=== PATIENT | female | born 1935 | race Caucasian/White ===

== ENCOUNTER 2017-10-09 11:11 | Observation (INO) | payer MEDICARE ==
--- NOTE | 2017-10-09 11:19 | ED ---
Altered Mental Status HPI - General Stated Complaint: Poss TIA Time Seen by Provider: 10/09/17 11:16 - History of Present Illness Initial Comments: Patient is transferred to us from an outside facility. Apparently several hours ago she had a syncopal episode. When she woke, she had trouble speaking and left arm weakness. Since then her symptoms have resolved on their own. She denies any weakness at this time. She has no chest pain or shortness of breath. She denies any belly or back pain. She has no diaphoresis. She has no headache. She has no lightheadedness or dizziness currently. She has no numbness or tingling in extremities. - Related Data Home Medications Medication Instructions Recorded Confirmed Lansoprazole [Prevacid] 15 mg PO DAILY 11/27/13 10/02/16 Metoprolol Succinate (ER) [Toprol 50 mg PO BID 11/27/13 10/02/16 XL] Aspirin 81 mg PO DAILY 06/16/16 10/02/16 Donepezil [Aricept] 5 mg PO HS 06/16/16 10/02/16 risperiDONE [RisperDAL] 0.5 mg PO BID 06/16/16 10/02/16 Ciprofloxacin HCl [Cipro] 500 mg PO Q12HR 10/02/16 10/02/16 Escitalopram [Lexapro] 20 mg PO DAILY 10/02/16 10/02/16 Loratadine-Pseudoeph 10-240 mg 1 each PO DAILY 10/02/16 10/02/16 [Claritin-D 24 Hr] amLODIPine [Norvasc] 5 mg PO DAILY 10/02/16 10/02/16 predniSONE 5 mg PO DAILY 10/02/16 10/02/16 Allergies Allergy/AdvReac Type Severity Reaction Status Date / Time metronidazole [From Flagyl] Allergy Unknown Unknown Verified 10/02/16 13:30 Metronidazole HCl Allergy Unknown Unknown Verified 10/02/16 13:30 [From Flagyl] sulfadiazine [Sulfadiazine] Allergy Unknown Verified 10/02/16 13:30 Review of Systems ROS Statement: Those systems with pertinent positive or pertinent negative responses have been documented in the HPI. ROS Other: All systems not noted in ROS Statement are negative. Past Medical History Past Medical History: Asthma, COPD, Dementia, Hypertension, Memory Impairment, Osteoarthritis (OA) Additional Past Medical History / Comment(s): BACK PAIN, colitis, TIA 2 years ago History of Any Multi-Drug Resistant Organisms: None Reported Past Surgical History: Hysterectomy Additional Past Surgical History / Comment(s): EYE SURGERY, bilateral knee replacements Past Anesthesia/Blood Transfusion Reactions: Postoperative Nausea & Vomiting ( PONV) Past Psychological History: Depression Additional Psychological History / Comment(s): . With the family home with but the care of her adult children. No experience. Travel history. No animal exposures. No tobacco use. No alcohol use or recreational drug use Smoking Status: Never smoker Past Alcohol Use History: None Reported Past Drug Use History: None Reported - Past Family History Father Additional Family Medical History / Comment(s): cardiac issues Mother Additional Family Medical History / Comment(s): Alzheimers General Exam General appearance: alert, in no apparent distress Head exam: Present: atraumatic, normocephalic, normal inspection Eye exam: Present: normal appearance, PERRL, EOMI. Absent: scleral icterus, conjunctival injection, periorbital swelling ENT exam: Present: normal exam, mucous membranes moist Neck exam: Present: normal inspection. Absent: tenderness, meningismus, lymphadenopathy Respiratory exam: Present: normal lung sounds bilaterally. Absent: respiratory distress, wheezes, rales, rhonchi, stridor Cardiovascular Exam: Present: regular rate, normal rhythm, normal heart sounds. Absent: systolic murmur, diastolic murmur, rubs, gallop, clicks GI/Abdominal exam: Present: soft, normal bowel sounds. Absent: distended, tenderness, guarding, rebound, rigid Extremities exam: Present: normal inspection, full ROM, normal capillary refill. Absent: tenderness, pedal edema, joint swelling, calf tenderness Back exam: Present: normal inspection Neurological exam: Present: alert, oriented X3, CN II-XII intact Psychiatric exam: Present: normal affect, normal mood Skin exam: Present: warm, dry, intact, normal color. Absent: rash Medical Decision Making - Medical Decision Making Patient presents with symptoms consistent with a TIA. She will be admitted to the hospital. Disposition Clinical Impression: Transient cerebral ischemia Disposition: ADMITTED IP TO THIS [facility] Condition: Fair Is patient prescribed a controlled substance at discharge?: No Referrals: Steve Castro MD [Primary Care Provider] - 1-2 days Time of Disposition: 11:25
[2017-10-09] MEDS ORDERED: ONDANSETRON 4 MG/2 ML VIAL IVP PRN (11:26)
[2017-10-09] MEDS ORDERED: NALOXONE 0.4 MG/ML 1 ML VIAL IV PRN (11:26)
--- NOTE | 2017-10-09 14:40 | P.CRDCN ---
History of Present Illness Consult date: 10/09/17 Requesting physician: Zita Mcintyre Consult reason: sycope Chief complaint: Syncope History of present illness: This is an 82-year-old female with history of hypertension, seizures, dementia, GERD, who was brought to [facility] today following a syncopal episode. History was obtained from the and son are at bedside. On to the , his had gone into the bathroom this morning, he noticed that she was taking more time than usual so he went to check on her. The water was continuing to run in the bathroom, and he states that his was staring off in a stare. She was not responding to him. He proceeded to help her walk to an area where she could sit down, on the way, she became extremely limp and ultimately unresponsive. According to the son, by the time he arrived she was unresponsive. The states it did not look like she was breathing, he did not check for a pulse. Shortly thereafter he said she took a gasp of air and woke up. EKG on presentation to [facility] showed normal sinus rhythm with no acute changes. ET of the head performed on arrival did not reveal any acute intracranial process, or illicit her injury of the right coronal noted. Chest x-ray revealed chronic changes, no acute changes. TSH 5.1 free T4 1 0.1, sodium 140, potassium 3.5, chloride 104, CO2 26 , magnesium 1.4, troponin 0.03. Patient was transferred here to [facility] for evaluation. Medications include 0.25 mg, Prevacid 15 mg, aspirin 81 mg, Exelon 3 mg all in the morning, at bedtime Xanax 0.25 mg, Toprol 50 mg, Norvasc 5 mg, Exelon 3 mg, and Seroquel. Blood pressure on arrival here 144/60 with a heart rate in the 70s, 96% on room air. Troponin 0.012. At the time of my examination, patient is pleasantly confused, unable to give a detailed history, son and are both at bedside. States that she is back to her normal self. Past Medical History Past Medical History: Asthma, COPD, CVA/TIA, Dementia, GERD/Reflux, Hypertension , Memory Impairment, Osteoarthritis (OA) Additional Past Medical History / Comment(s): 2012 TIA, migraines in the past, low L sided back pain, ulcerative colitis, past L pretivia wound/injury. History of Any Multi-Drug Resistant Organisms: None Reported Past Surgical History: Bladder Surgery, Hysterectomy, Joint Replacement Additional Past Surgical History / Comment(s): R eye surgery for strabismus, bilateral total knee arthroplasties, R abdominal lipoma removed, bladder suspension, rectocele repair, colonoscopy, D&C, bilateral cataract removals. Past Anesthesia/Blood Transfusion Reactions: Postoperative Nausea & Vomiting ( PONV) Smoking Status: Never smoker - Past Family History Father Additional Family Medical History / Comment(s): cardiac issues Mother Family Medical History: Dementia Additional Family Medical History / Comment(s): Alzheimers Medications and Allergies Home Medications Medication Instructions Recorded Confirmed Type Aspirin 81 mg PO DAILY 06/16/16 10/09/17 History amLODIPine [Norvasc] 5 mg PO HS 10/02/16 10/09/17 History ALPRAZolam [Xanax] 0.25 mg PO BID 10/09/17 10/09/17 History Lansoprazole [Prevacid] 15 mg PO DAILY 10/09/17 10/09/17 History Metoprolol Succinate (ER) [Toprol 50 mg PO HS 10/09/17 10/09/17 History Xl] QUEtiapine [SEROquel] 150 mg PO HS 10/09/17 10/09/17 History Rivastigmine Tartrate [Exelon] 3 mg PO BID 10/09/17 10/09/17 History Allergies Allergy/AdvReac Type Severity Reaction Status Date / Time metronidazole [From Flagyl] Allergy Unknown Unknown Verified 10/09/17 13:10 Metronidazole HCl Allergy Unknown Unknown Verified 10/09/17 13:10 [From Flagyl] sulfadiazine [Sulfadiazine] Allergy Unknown Verified 10/09/17 13:10 Physical Exam Vitals: Vital Signs Temp Pulse Pulse Resp BP BP Pulse Ox 10/09/17 14:16 96.8 F L 69 18 164/72 96 10/09/17 13:07 98.2 F 64 18 144/63 96 10/09/17 11:15 97.1 F L 76 18 144/65 96 Intake and Output 10/08/17 10/09/17 10/09/17 22:59 06:59 14:59 Other: Weight 61.235 kg PHYSICAL EXAMINATION: HEENT: Head is atraumatic, normocephalic. Pupils equal, round. Neck is supple. There is no elevated jugular venous pressure. Bilateral carotid bruits are heard HEART EXAMINATION: Heart S1 and S2 systolic murmur is heard CHEST EXAMINATION: Lungs are clear to auscultation and precussion. No chest wall tenderness is noted on palpation or with deep breathing. ABDOMEN: Soft, nontender. Bowel sounds are heard. No organomegaly noted. EXTREMITIES: 2+ peripheral pulses with no evidence of peripheral edema and no calf tenderness noted. NEUROLOGIC patient is awake, alert and oriented -1 . Results Cardiac Enzymes 10/09/17 Range/Units 12:30 Troponin I <0.012 (0.000-0.034) ng/mL Current Medications Generic Name Dose Route Start Last Admin Trade Name Freq PRN Reason Stop Dose Admin Amlodipine Besylate 5 mg 10/10/17 09:00 Norvasc PO DAILY SHABNAM Aspirin 81 mg 10/10/17 09:00 Aspirin PO DAILY SHABNAM Donepezil HCl 5 mg 10/09/17 21:00 Aricept PO HS SHABNAM Escitalopram Oxalate 20 mg 10/10/17 09:00 Lexapro PO DAILY SHABNAM Famotidine 20 mg 10/09/17 21:00 Pepcid PO BID SHABNAM Metoprolol Succinate 50 mg 10/09/17 21:00 Toprol Xl PO BID SHABNAM Naloxone HCl 0.2 mg 10/09/17 11:26 Narcan IV Q2M PRN Opioid Reversal Ondansetron HCl 4 mg 10/09/17 11:26 Zofran IVP Q8HR PRN Nausea And Vomiting Risperidone 0.5 mg 10/09/17 21:00 Risperdal PO BID SHABNAM Intake and Output 10/08/17 10/09/17 10/09/17 22:59 06:59 14:59 Other: Weight 61.235 kg Patient Weight 10/10/17 06:59 Weight 61.235 kg EKG Interpretations (text) EKG shows a normal sinus rhythm with no acute changes. Assessment and Plan Plan: Assessment and plan #1 syncope, with preempted staring gaze. Rule out seizures or possible TIA. EKG shows normal sinus rhythm with no acute changes. #2 hypertension history #3 dementia #4 history of UTIs #5 history of seizures Plan We'll request an echocardiogram with Doppler study be performed. We will also repeat an EKG here, continue to monitor the patient for any tachycardia or bradycardia arrhythmias. Further recommendations will be based on these findings and patient's clinical course. DNP note has been reviewed, I agree with a documented findings and plan of care. Patient was seen and examined.
--- NOTE | 2017-10-09 17:48 | EEG ---
ELECTROENCEPHALOGRAM REPORT DATE OF SERVICE: 10/09/2017. REASON FOR TESTING: Transient ischemic attack. DESCRIPTION OF THE PROCEDURE: This EEG was performed using a 21 channel digital electroencephalograph, following international 10-20 system. DESCRIPTION OF THE RECORDING: From the beginning of the tracing, and with patient's eyes closed, the background rhythm was mostly consisting of 8 Hz alpha frequency in the posterior occipital leads. No obvious asymmetry is seen. Frequent muscle and movement artifacts are seen. Photic stimulation was performed with no driving response seen. No pathological waves were elicited. Hyperventilation was not performed. The patient remains awake throughout the tracing. No epileptiform discharges were seen. Her EKG lead showed a regular rate and rhythm. INTERPRETATION: This awake EEG can be considered within normal limits. There was no asymmetry seen. No epileptiform discharges were noticed. The absence of epileptiform discharges does not rule out the diagnosis of epilepsy, therefore clinical correlation is recommended. MMODL / IJN: [id number] /
[2017-10-09] MEDS: ALPRAZolam 0.25 MG TAB PO SCH (19:14)
[2017-10-09] MEDS: FAMOTIDINE 20 MG TAB PO SCH (20:57)
[2017-10-09] MEDS: METOPROLOL SUCCINATE (ER) 50 MG TAB.ER.24H PO SCH (20:57)
[2017-10-09] MEDS: risperiDONE 0.5 MG TAB PO SCH (20:58)
[2017-10-09] MEDS ORDERED: DONEPEZIL 10 MG TAB PO SCH (21:00)
[2017-10-09] MEDS ORDERED: DONEPEZIL 5 MG TAB PO SCH (21:00)
[2017-10-09] MEDS ORDERED: METOPROLOL SUCCINATE (ER) 50 MG TAB.ER.24H PO SCH (21:00)
[2017-10-09] MEDS: QUEtiapine 50 MG TAB PO SCH (21:02)
--- NOTE | 2017-10-09 23:09 | US ---
EXAMINATION TYPE: US carotid duplex BILAT DATE OF EXAM: 10/09/2017 COMPARISON: 11/27/2013 CLINICAL HISTORY: TIA. TIA EXAM MEASUREMENTS: RIGHT: Peak Systolic Velocity (PSV) cm/sec ----- Right CCA: 66.7 ----- Right ICA: 72.6 ----- Right ECA: 109.7 ICA/CCA ratio: 1.1 RIGHT: End Diastole cm/sec ----- Right CCA: 14.4 ----- Right ICA: 10.0 ----- Right ECA: 7.9 LEFT: Peak Systolic Velocity (PSV) cm/sec ----- Left CCA: 71.3 ----- Left ICA: 72.6 ----- Left ECA: 105.7 ICA/CCA ratio: 1.0 LEFT: End Diastole cm/sec ----- Left CCA: 15.7 ----- Left ICA: 17.1 ----- Left ECA: 14.4 VERTEBRALS (direction of flow): Right Vertebral: Antegrade Left Vertebral: Antegrade Rhythm: Normal No significant stenosis seen IMPRESSION: There is antegrade flow in the vertebral arteries. The images and measurements suggest l ess than 20% stenosis in both internal carotid arteries. No adverse change compared to old exam. Criteria for Assigning % of Stenosis / Diameter reduction (Estimation based on the indirect measurements of the internal carotid artery velocities (ICA PSV). 1. Normal (no stenosis)=ICA PSV < 125 cm/s: ratio < 2.0: ICA EDV<40 cm/s. 2. Less than 50% stenosis=ICA PSV < 125 cm/s: ratio < 2.0: ICA EDV<40 cm/s. 3. 50 to 69% stenosis=ICA PSV of 125 to 230 cm/s: ration 2.0 ? 4.0: ICA EDV 40-100 cm/s. 4. Greater than 70% stenosis to near occlusion= ICA PSV > 230 cm/s: ratio > 4.0: ICA EDV > 100 cm/s. 5. Near occlusion= ICA PSV velocities may be low or undetectable: variable ratio and ICA EDV. 6. Total occlusion=unable to detect flow.
[2017-10-09] MEDS: RIVASTIGMINE 4.6MG/24HR PATCH TRANSDERM SCH (23:17)
[2017-10-09] MEDS: OXcarbazepine 150 MG TAB PO SCH (23:17)
--- NOTE | 2017-10-09 23:42 | CONS ---
CONSULTATION DATE OF CONSULTATION: 10/09/2017 CHIEF COMPLAINT: Transient ischemic attack. HISTORY OF PRESENT ILLNESS: The patient is a pleasant 82-year-old female, who is being evaluated by the Neurology service per the request of Dr. Castro for a questionable transient ischemic attack. The patient has a history of advanced dementia and lives with her . Her is at bedside at the time of my evaluation, and the history was obtained from him. Her states that the patient went to the restroom and then he noticed that she was in the restroom for a prolonged period of time. When he went to check up on her, she was sitting on the toilet with the lid closed and she was staring at the wall. He tried talking to her, but she was not responding. He took her to the living room chair and she remained unresponsive to verbal stimuli. EMS was called and the patient was transferred to [facility] where a CT scan of the brain was done and it was negative, according to the chart. The patient remained nonverbal until she was transferred to [facility]. According to the chart, the patient was noticed to have some left-sided weakness. Her states that she had a seizure several months ago and had been placed on Keppra, but it was discontinued due to side effects. An EEG was done and I did reviewed study, which showed no epileptiform discharges. Her basic metabolic profile and cardiac enzymes were normal. Her CT scan of the brain that was done at [facility] mentions an old lacunar infarct involving the right mitchell radiata. At the time of my evaluation, the patient is more awake. She appears to be back to her baseline, according to her . She does have history of Alzheimer's dementia, which was diagnosed several years ago and she is on Exelon and Namenda at home. According to the family, she was initially placed on Aricept but she had significant side effects. On this admission, her Exelon tablets have been switched to Aricept. Of note, the patient does take aspirin 81 mg daily at home. PAST MEDICAL HISTORY: Alzheimer's dementia, asthma, chronic obstructive pulmonary disease, hypertension, osteoarthritis, previous seizure, chronic low back pain, history of stroke, hysterectomy, depression, knee surgeries, eye surgery. SOCIAL HISTORY: There is no history of any tobacco, alcohol or drug use. FAMILY HISTORY: Positive for Alzheimer's dementia and heart disease. HOME MEDICATIONS: Reviewed in the chart. ALLERGIES: FLAGYL AND SULFA DRUGS. REVIEW OF SYSTEM: Unable to obtain due to advanced dementia. PHYSICAL EXAM: Vital signs show a temperature of 98.2, pulse 64, respiration 18, blood pressure 144/63. GENERAL APPEARANCE: The patient is a well-developed, elderly female who appears to be in no acute distress. HEENT: Normocephalic, atraumatic. No facial asymmetry is seen. NECK: Supple with no masses felt. CARDIOVASCULAR: Regular rate and rhythm. ABDOMEN: Nontender and nondistended. Extremities showed no edema or clubbing. NEUROLOGICAL EXAM: The patient is awake and oriented to person only. She does follow commands appropriately. No lateralizing weakness is seen. Language testing was normal. Sensory exam was normal to light touch in all 4 extremities. Mild postural tremors are seen. No seizure-like activity is seen. No facial asymmetry is noticed on cranial nerve testing. IMPRESSION: 1. Transient ischemic attack. 2. Questionable seizure. 3. Advanced Alzheimer's dementia. 4. History of ischemic stroke. RECOMMENDATION: The patient's episode that occurred at home is concerning for a possible focal seizure. As mentioned above, the patient has had a previous seizure and was placed on Keppra for a short period of time. Keppra was then discontinued due to side effects. I had a lengthy discussion with her and children. and I will start her on antiepileptic medications. I will start her on a low-dose of Trileptal 150 mg b.i.d. This will likely be increased in the near future to 300 mg b.i.d. Her initial EEG showed no epileptiform discharges. Her episode may also have been a transient ischemic attack as she was noticed to have left upper extremity weakness, according to the chart. This has resolved. I will discontinue aspirin and start her on Plavix 75 mg daily. I will order a carotid Doppler, fasting lipid panel and serum homocystine level. As for her Alzheimer's dementia, the patient has had significant side effects on Aricept. Her Exelon pills have been substituted to Aricept on this admission. I will discontinue Aricept and start her on Exelon patch daily. After her discharge, she may resume her Exelon tablets and the patch will be discontinued. Continue neuro checks. I will continue to follow with you. Further recommendations to follow. Thank you for allowing me to participate in the care of your patient. If you have any questions, please feel free to contact me. MMODL / IJN: [id number] /
[2017-10-10 06:30] LABS: Basophils % (A) 0 %; Eosinophils # (A) 0.2 k/uL (0-0.7); Eosinophils % (A) 4 %; HCT 38.6 % (34.0-46.0); HGB 12.8 gm/dL (11.4-16.0); Lymphocytes # (A) 1.6 k/uL (1.0-4.8); Lymphocytes % (A) 26 %; MCH 29.6 pg (25.0-35.0); MCHC 33.3 g/dL (31.0-37.0); MCV 88.8 fL (80.0-100.0); Mean Platelet Volume 7.4; Monocytes # (A) 0.4 k/uL (0-1.0); Monocytes % (A) 7 %; Neutrophils # (A) 3.6 k/uL (1.3-7.7); Neutrophils % (A) 60 %; Platelet Count 205 k/uL (150-450); RBC 4.35 m/uL (3.80-5.40); WBC 5.9 k/uL (3.8-10.6)
[2017-10-10 06:43] LABS: ALT 17 U/L (9-52); AST 20 U/L (14-36); Albumin 3.6 g/dL (3.5-5.0); Alkaline Phosphatase 69 U/L (38-126); Anion Gap 10 mmol/L; Blood Urea Nitrogen 13 mg/dL (7-17); Calcium 9.1 mg/dL (8.4-10.2); Carbon Dioxide 29 mmol/L (22-30); Chloride 105 mmol/L (98-107); Cholesterol 184 mg/dL (<200); Glucose 103 mg/dL (74-99); HDL Cholesterol 47 mg/dL (40-60); LDL Cholesterol,Calculated 118 mg/dL (0-99); Potassium 3.9 mmol/L (3.5-5.1); Sodium 144 mmol/L (137-145); Total Bilirubin 0.4 mg/dL (0.2-1.3); Total Protein 6.1 g/dL (6.3-8.2); Triglycerides 95 mg/dL (<150)
[2017-10-10] MEDS: ALPRAZolam 0.25 MG TAB PO SCH ×2 (08:01→17:10)
[2017-10-10] MEDS: amLODIPine 5 MG TAB PO SCH (08:01)
[2017-10-10] MEDS: CLOPIDOGREL 75 MG TAB PO SCH (08:01)
[2017-10-10] MEDS: ESCITALOPRAM 20 MG TAB PO SCH (08:02)
[2017-10-10] MEDS: risperiDONE 0.5 MG TAB PO SCH (08:02)
[2017-10-10] MEDS: FAMOTIDINE 20 MG TAB PO SCH ×2 (08:02→21:03)
[2017-10-10] MEDS: OXcarbazepine 150 MG TAB PO SCH ×2 (08:03→21:03)
[2017-10-10] MEDS ORDERED: ASPIRIN 81 MG PO SCH (09:00)
[2017-10-10] MEDS ORDERED: RIVASTIGMINE 9.5MG/24HR PATCH TRANSDERM SCH (13:30)
--- NOTE | 2017-10-10 14:31 | PN ---
PROGRESS NOTE Ms. Redd is an 82-year-old female who presented with possible syncopal episode. She has history of advanced dementia. She is awake, confused. On the monitor she is in sinus mechanism. There is no evidence of tachy or bradyarrhythmia. There is no evidence of significant hypotension. She continues to be at this time on amlodipine 5 mg daily, Plavix 75 mg daily, Lexapro 20 mg daily, metoprolol succinate 50 mg daily, Seroquel. PHYSICAL EXAMINATION: Blood pressure 140/60 with a heart in the 60s. LUNGS: Clear. HEART: Regular rate and rhythm. S1, S2. No S3. No rub. ABDOMEN: Soft, nontender. EXTREMITIES: No edema. LAB DATA: Revealed BUN and creatinine 13 and 0.6. IMPRESSION: 1. Syncope. Workup in progress. 2. Advance dementia. 3. History of hypertension. RECOMMENDATION: I will review the results for echocardiogram. If there is no evidence of significant abnormality, then no further cardiac workup will be needed. MMODL / IJN: [id number] /
[2017-10-10 15:48] LABS: Appearance,Urine Cloudy (Clear); Bilirubin,Urine Negative (Negative); Blood,Urine Negative (Negative); Color,Urine Yellow; Glucose,Urine (UA) Negative (Negative); Ketones,Urine Negative (Negative); Leukocyte Esterase,Urine Negative (Negative); Mucus,Urine Rare /hpf; Nitrite,Urine Negative (Negative); Protein,Urine Negative (Negative); RBC,Urine 1 /hpf (0-5); Squamous Epithelial Cell,Urine 1 /hpf (0-4); Urobilinogen,Urine <2.0 mg/dL (<2.0); WBC,Urine 1 /hpf (0-5)
--- NOTE | 2017-10-10 17:12 | P.HPIM ---
History of Present Illness H&P Date: 10/10/17 Chief Complaint: Mental status changes with unresponsiveness This is an 82-year-old lady patient of Dr. Castro, known history of seizures. She, as mentioned, osteoarthritis and CVA in the past Alzheimer's dementia with behaviors, requiring maintenance psychotropics, has been stable at home environment however she was sent to the emergency room first evaluated at [facility] secondary to prolonged unresponsiveness. Patient lives with the at home, and the patient was ambulating towards the bathroom, and the was wondering what takes her so long, when he came to investigate, patient was sitting the commode, leaving leaning over in the back seat and unresponsive, or decreased unresponsiveness. Patient has been tried to assist her she was not totally limp, and was able to get her out of the bathroom for further assistance. Approximately one hour has passed prior when this was discovered. EMS was subsequently transferred the patient to leave the [facility], however without any neurology service available at [facility], she was subsequent sent to [facility] When seen patient is alert and oriented 2, son provided most of the history, patient's of the historian Review of Systems Constitutional: Reports as per HPI, Reports anorexia, Denies chills, Denies chronic headaches, Denies chronic pain, Denies daytime sleepiness, Denies fatigue, Denies fever, Denies lethargy, Denies malaise, Denies night sweats, Denies poor appetite, Denies sweats, Denies weakness, Denies weight gain, Denies weight loss Ears, nose, mouth and throat: Reports as per HPI, Denies ant. neck pain, Denies bleeding gums, Denies dental pain, Denies dysphagia, Denies epistaxis, Denies headache, Denies hoarseness, Denies mouth pain, Denies nasal congestion, Denies nasal discharge, Denies neck fullness/pressure, Denies neck lump, Denies nose pain, Denies odynophagia, Denies post-nasal drip, Denies sinus pain, Denies sinus pressure, Denies swelling in mouth, Denies swelling in throat, Denies sore throat, Denies vertigo, Denies voice changes Cardiovascular: Reports as per HPI, Denies chest pain, Denies claudication, Denies decreased exercise tolerance, Denies dyspnea on exertion, Denies edema, Denies high blood pressure, Denies irregular heart beat, Denies leg edema, Denies lightheadedness, Denies orthopnea, Denies palpitations, Denies paroxysmal nocturnal dyspnea, Denies phlebitis, Denies rapid heart beat, Denies shortness of breath, Denies syncope Respiratory: Reports as per HPI, Denies congestion, Denies cough, Denies cough with sputum, Denies dyspnea, Denies excessive sputum, Denies hemoptysis, Denies home oxygen, Denies pain, Denies pain on inspiration, Denies pleurisy, Denies respiratory infections, Denies sleep apnea, Denies snoring, Denies wheezing Gastrointestinal: Reports as per HPI, Denies abdominal pain, Denies belching, Denies bloating, Denies BRBPR, Denies change in bowel habits, Denies coffee ground emesis, Denies constipation, Denies diarrhea, Denies dyspepsia, Denies early satiety, Denies excessive gas, Denies heartburn, Denies hematemesis, Denies hematochezia, Denies indigestion, Denies jaundice, Denies lactose intolerance, Denies loss of appetite, Denies melena, Denies nausea, Denies vomiting Genitourinary: Reports as per HPI Menstruation: Reports as per HPI, Reports postmenopausal, Denies amenorrhea, Denies amenorrhea on BC, Denies currently menstrual, Denies cycle < 21 days, Denies cycle > 35 days, Denies cycle variable, Denies menses 1-7 days, Denies menses 8 or > days, Denies menses variable, Denies period heavy, Denies period light, Denies period normal, Denies period spotting, Denies post hysterectomy, Denies premenarcheal Musculoskeletal: Reports as per HPI, Reports limitation of motion, Reports muscle cramps, Reports myalgias, Denies arm numbness/tingling, Denies atrophy, Denies fractures, Denies frequent falls, Denies gait dysfunction, Denies hot joints, Denies leg numbness/tingling, Denies loss of height, Denies low back pain, Denies morning stiffness, Denies muscle weakness, Denies neck pain, Denies neck stiffness, Denies prior amputations, Denies redness of joints, Denies shooting arm pain, Denies shooting leg pain Integumentary: Reports as per HPI Neurological: Reports as per HPI, Reports balance difficulties, Denies aphasia, Denies ataxia, Denies burning pain, Denies change in mentation, Denies change in smell/taste, Denies change in speech, Denies confusion, Denies convulsions, Denies double vision, Denies gait dysfunction, Denies head injury, Denies headaches, Denies hearing difficulties, Denies lack of coordination, Denies loss of vision, Denies memory loss, Denies migraines, Denies motor disturbance, Denies numbness, Denies paralysis, Denies paresthesias, Denies seizures, Denies sensory deficit, Denies spasticity, Denies syncope, Denies tic, Denies tingling , Denies transient paralysis, Denies tremors, Denies vertigo, Denies weakness, Denies visual changes Psychiatric: Reports as per HPI, Denies anhedonia, Denies anxiety, Denies anxiety attacks, Denies change in appetite, Denies change in libido, Denies change in sleep habits, Denies confusion, Denies depression, Denies difficulty concentrating, Denies disorientation, Denies hallucinations, Denies hopelessness , Denies hypersomnia, Denies insomnia, Denies irritability, Denies memory loss, Denies mood swings, Denies paranoia, Denies sadness/tearfulness, Denies sleep disturbances, Denies suicidal ideation Endocrine: Reports as per HPI, Denies cold intolerance, Denies deepening of the voice, Denies excessive sweating, Denies excessive thirst, Denies fatigue, Denies flushing, Denies heat intolerance, Denies high blood sugars, Denies increase in ring/shoe/hat size, Denies low blood sugars, Denies nocturia, Denies palpitations, Denies polydipsia, Denies polyphagia, Denies polyuria, Denies proptosis, Denies recent glucocorticoid use, Denies thyroid mass, Denies weight change Hematologic/Lymphatic: Reports as per HPI, Denies easy bleeding, Denies easy bruising, Denies lymphadenopathy, Denies lymphedema, Denies thrombophilia Allergic/Immunologic: Reports as per HPI, Denies allergic rhinitis, Denies anaphylaxis, Denies angioedema, Denies gluten intolerance, Denies persistent infections, Denies seasonal allergies, Denies urticaria, Denies wheezing Past Medical History Past Medical History: Asthma, COPD, CVA/TIA, Dementia, GERD/Reflux, Hypertension , Memory Impairment, Osteoarthritis (OA) Additional Past Medical History / Comment(s): 2011 TIA, migraines in the past, low L sided back pain, ulcerative colitis, past L pretivia wound/injury. History of Any Multi-Drug Resistant Organisms: None Reported Past Surgical History: Bladder Surgery, Hysterectomy, Joint Replacement Additional Past Surgical History / Comment(s): R eye surgery for strabismus, bilateral total knee arthroplasties, R abdominal lipoma removed, bladder suspension, rectocele repair, colonoscopy, D&C, bilateral cataract removals. Past Anesthesia/Blood Transfusion Reactions: Postoperative Nausea & Vomiting ( PONV) Past Psychological History: No Psychological Hx Reported Smoking Status: Never smoker Additional History: One brother, from colon cancer, has CAD, 4 sisters, one with CAD at age 45, one daughter healthy 2 sons and one with hypertension - Past Family History Father History Unknown: Yes Family Medical History: Neurologic Disorder (Dementia) Additional Family Medical History / Comment(s): cardiac issues Mother History Unknown: Yes Family Medical History: Dementia, Osteoarthritis (OA) Additional Family Medical History / Comment(s): Alzheimers Medications and Allergies Home Medications Medication Instructions Recorded Confirmed Type Aspirin 81 mg PO DAILY 06/16/16 10/09/17 History amLODIPine [Norvasc] 5 mg PO HS 10/02/16 10/09/17 History ALPRAZolam [Xanax] 0.25 mg PO BID 10/09/17 10/09/17 History Lansoprazole [Prevacid] 15 mg PO DAILY 10/09/17 10/09/17 History Metoprolol Succinate (ER) [Toprol 50 mg PO HS 10/09/17 10/09/17 History Xl] QUEtiapine [SEROquel] 150 mg PO HS 10/09/17 10/09/17 History Rivastigmine Tartrate [Exelon] 3 mg PO BID 10/09/17 10/09/17 History Allergies Allergy/AdvReac Type Severity Reaction Status Date / Time metronidazole [From Flagyl] Allergy Unknown Unknown Verified 10/09/17 13:10 Metronidazole HCl Allergy Unknown Unknown Verified 10/09/17 13:10 [From Flagyl] sulfadiazine [Sulfadiazine] Allergy Unknown Verified 10/09/17 13:10 Physical Exam Vitals: Vital Signs Temp Pulse Pulse Resp BP BP Pulse Ox 10/09/17 16:00 96.9 F L 78 16 141/64 95 10/09/17 14:16 96.8 F L 69 18 164/72 96 10/09/17 13:07 98.2 F 64 18 144/63 96 10/09/17 11:15 97.1 F L 76 18 144/65 96 Intake and Output 10/09/17 10/09/17 10/09/17 06:59 14:59 22:59 Intake Total 0 Output Total 400 Balance -400 Intake: Oral 0 Output: Urine 400 Other: # Voids 1 # Bowel Movements 0 Weight 61.235 kg - Constitutional General appearance: cooperative, no acute distress - EENT Eyes: anicteric sclerae, EOMI, normal appearance ENT: NA/AT, normal oropharynx - Neck Neck: normal ROM - Respiratory Respiratory: bilateral: CTA, negative: diminished, dullness, rales, rhonchi, wheezing - Cardiovascular Rhythm: regular Heart sounds: normal: S1, S2 Abnormal Heart Sounds: no systolic murmur, no diastolic murmur, no rub, no S3 Gallop, no S4 Gallop, no click, no other - Gastrointestinal General gastrointestinal: normal bowel sounds, soft - Integumentary Integumentary: normal, normal turgor - Neurologic Neurologic: CNII-XII intact - Musculoskeletal Musculoskeletal: generalized weakness, strength equal bilaterally - Psychiatric Psychiatric: A&O x's 3, appropriate affect Results CBC & Chem 7: 10/10/17 06:14 10/10/17 06:14 Labs: Laboratory Results WBC 5.9 k/uL (3.8-10.6) 10/10/17 06:14 RBC 4.35 m/uL (3.80-5.40) 10/10/17 06:14 Hgb 12.8 gm/dL (11.4-16.0) 10/10/17 06:14 Hct 38.6 % (34.0-46.0) 10/10/17 06:14 MCV 88.8 fL (80.0-100.0) 10/10/17 06:14 MCH 29.6 pg (25.0-35.0) 10/10/17 06:14 MCHC 33.3 g/dL (31.0-37.0) 10/10/17 06:14 RDW 13.0 % (11.5-15.5) 10/10/17 06:14 Plt Count 205 k/uL (150-450) 10/10/17 06:14 Neutrophils % 60 % 10/10/17 06:14 Lymphocytes % 26 % 10/10/17 06:14 Monocytes % 7 % 10/10/17 06:14 Eosinophils % 4 % 10/10/17 06:14 Basophils % 0 % 10/10/17 06:14 Neutrophils # 3.6 k/uL (1.3-7.7) 10/10/17 06:14 Lymphocytes # 1.6 k/uL (1.0-4.8) 10/10/17 06:14 Monocytes # 0.4 k/uL (0-1.0) 10/10/17 06:14 Eosinophils # 0.2 k/uL (0-0.7) 10/10/17 06:14 Basophils # 0.0 k/uL (0-0.2) 10/10/17 06:14 Sodium 144 mmol/L (137-145) 10/10/17 06:14 Potassium 3.9 mmol/L (3.5-5.1) 10/10/17 06:14 Chloride 105 mmol/L (98-107) 10/10/17 06:14 Carbon Dioxide 29 mmol/L (22-30) 10/10/17 06:14 Anion Gap 10 mmol/L 10/10/17 06:14 BUN 13 mg/dL (7-17) 10/10/17 06:14 Creatinine 0.60 mg/dL (0.52-1.04) 10/10/17 06:14 Est GFR (CKD-EPI)AfAm >90 (>60 ml/min/1.73 sqM) 10/10/17 06:14 Est GFR (CKD-EPI)NonAf 85 (>60 ml/min/1.73 sqM) 10/10/17 06:14 Glucose 103 mg/dL (74-99) H 10/10/17 06:14 Calcium 9.1 mg/dL (8.4-10.2) 10/10/17 06:14 Total Bilirubin 0.4 mg/dL (0.2-1.3) 10/10/17 06:14 AST 20 U/L (14-36) 10/10/17 06:14 ALT 17 U/L (9-52) 10/10/17 06:14 Alkaline Phosphatase 69 U/L (38-126) 10/10/17 06:14 Troponin I <0.012 ng/mL (0.000-0.034) 10/09/17 23:59 Total Protein 6.1 g/dL (6.3-8.2) L 10/10/17 06:14 Albumin 3.6 g/dL (3.5-5.0) 10/10/17 06:14 Triglycerides 95 mg/dL (<150) 10/10/17 06:14 Cholesterol 184 mg/dL (<200) 10/10/17 06:14 LDL Cholesterol, Calc 118 mg/dL (0-99) H 10/10/17 06:14 HDL Cholesterol 47 mg/dL (40-60) 10/10/17 06:14 Homocysteine 9.23 umol/L (4.00-14.00) 10/10/17 06:14 TSH 2.970 mIU/L (0.465-4.680) 10/10/17 06:14 Urine Color Yellow 10/10/17 15:35 Urine Appearance Cloudy (Clear) H 10/10/17 15:35 Urine pH 7.0 (5.0-8.0) 10/10/17 15:35 Ur Specific [place] 1.010 (1.001-1.035) 10/10/17 15:35 Urine Protein Negative (Negative) 10/10/17 15:35 Urine Glucose (UA) Negative (Negative) 10/10/17 15:35 Urine Ketones Negative (Negative) 10/10/17 15:35 Urine Blood Negative (Negative) 10/10/17 15:35 Urine Nitrite Negative (Negative) 10/10/17 15:35 Urine Bilirubin Negative (Negative) 10/10/17 15:35 Urine Urobilinogen <2.0 mg/dL (<2.0) 10/10/17 15:35 Ur Leukocyte Esterase Negative (Negative) 10/10/17 15:35 Urine RBC 1 /hpf (0-5) 10/10/17 15:35 Urine WBC 1 /hpf (0-5) 10/10/17 15:35 Ur Squamous Epith Cells 1 /hpf (0-4) 10/10/17 15:35 Urine Mucus Rare /hpf (None) H 10/10/17 15:35 Thrombosis Risk Factor Assmnt - DVT/VTE Prophylaxis DVT/VTE Prophylaxis: Pharmacologic Prophylaxis ordered - Choose All That Apply Any of the Below Risk Factors Present?: Yes Each Factor Represents 1 point: Abnormal pulmonary function (COPD), Obesity ( BMI >25) Other Risk Factors: Yes Each Risk Factor Represents 3 Points: Age 75 years or older Other congenital or acquired thrombophilia - If yes, enter type in comment: No Thrombosis Risk Factor Assessment Total Risk Factor Score: 5 Thrombosis Risk Factor Assessment Level: High Risk Assessment and Plan Plan: 1 Metabolic encephalopathy with prolonged unresponsiveness, TIA against seizure , possible history of seizure however patient is not medicated for this, follows closely by her personal neurologis Patricia Brantley, EEG of the brain, CAT scan failed to reveal any acute changes, she does have cerebral atrophy. Patient had a carotid Dopplers, and lipid panels and homocystine level, EEG of the brain, no rechecks, urinalysis is negative TSH is normal 2.9. Trileptal started by neurology started on Plavix 75 mg daily 2 Advanced dementia, maintained on Seroquel and Risperdal secondary to behaviors , patient has been stable, however she does have pleasant sundowning every day, neurology is following, and they have titrated exelon to exelon patch daily and continue on her Exelon patch post discharge .Family requests long-term care at [facility] secondary to needs, the is also physically ill, we will provide comforting and nonthreatening environment while here, will discontinue SCDs as this can disrupt sleep and can get her agitated. Seroquel 150 mg at bedtime to continue, initiate 12.5 mg every morning, to replace home dose of Risperdal 0.5 mg twice a day., This was carefully reviewed at home again later to clarify medications, confirms no use of Risperdal at home just Seroquel. We would discontinue Seroquel 12.5 mg a.m. and continue 150 at at bedtime 3 COPD without any exacerbation 4 Hypertensive cardiovascular disease, Toprol-XL 50 mg daily, amlodipine 5 mg daily,, when necessary hydralazine 10 every 4 when necessary for 150 5 Anxiety on Xanax 0.25 mg twice a day, add melatonin at 6 mg at bedtime once the hospital 6 dvt prophylaxis Lovenox subcu, discontinue SCDs as it is disruptive and agitated the patient 7 Discharge planning, permanent long-term stay at [facility] social psychologist in progress Observation status during this hospital stay, patient might require additional investigations, urinalysis was
[2017-10-10] MEDS: ENOXAPARIN 30 MG/0.3 ML SYRINGE SQ SCH (18:57)
--- NOTE | 2017-10-10 20:06 | P.PN ---
Subjective Progress Note Date: 10/10/17 Principal diagnosis: TIA Neurology is following an 82-year-old female for possible TIA and seizure. Patient has extensive history of advanced dementia (alzheimers) and lives with her . Patient was in the restroom for a prolonged period time, spouse checked on patient and noted that the patient was staring at the wall. Spouse attempted to interact with the patient but she would not respond. Patient was moved to living room chair and remained unresponsive to verbal stimuli. EMS was called and transferred patient to [facility] where a CT of the brain was negative. Patient remained nonverbal until she was transferred to [facility]. on arrival at the ED and [place], patient was observed to have some left -sided weakness. Spouse states that she had a seizure several months ago and was placed on Keppra but discontinued due to side effects. EEG was conducted and found to be normal. BMP, cardiac enzymes were normal. Patient was found to be more awake when original consult was conducted. Patient appeared to be back to baseline according to . Patient does have history of Alzheimer' s which was diagnosed several years ago and she is on Exelon and Namenda at home. According to family she failed Aricept due to significant side effects. Patient was placed on Trileptal 150 mg twice a day after initial neurological consult with anticipation of increasing 300 twice a day in the office setting after discharge. Imaging noted old lacunar infarct on charting from [facility]. On contact, patient was resting in bed, no acute distress, family at the bedside. Patient was noted to be alert. Objective - Vital Signs Vital signs: Vital Signs Temp 97.6 F 10/10/17 16:00 Pulse 72 10/10/17 16:00 Resp 18 10/10/17 16:00 BP 168/70 10/10/17 16:00 Pulse Ox 92 L 10/10/17 16:00 Intake & Output 10/10/17 10/10/17 10/11/17 06:59 18:59 06:59 Intake Total 0 Output Total 200 300 Balance -200 -300 Weight 60 kg Intake: Oral 0 Output: Urine 200 300 Other: # Voids 1 1 # Bowel Movements 0 0 - Exam General appearance: Alert & oriented x1, no apparent distress. Head: Atraumatic, normocephalic, normal inspection Eyes: Well appearance, PERRLA, EOMI. Absent scleral icterus, conjunctival injection, nystagmus, periorbital swelling. Ear, nose and throat: Normal exam, mucous membranes moist Neck: Normal inspection, absent tenderness, lymphadenopathy. Respiratory: No increased work of breathing Cardiovascular: Regular rate, rhythm GI/abdominal: nontender, nondistended Extremities: full range of motion, normal capillary refill, no tenderness, pedal edema joint swelling, calf tenderness. Neurological: cranial nerves II through XII intact no lateralizing weakness no seizure activity noted on physical exam or reported by nursing her staff since initiation of Trileptal patient is alert to person only, no lateralizing weakness, language was normal. Sensory exam was normal to light touch in all 4 extremities. Mild postural tremors noted. No facial asymmetry and cranial nerve testing. Psychological: Mood and affect appropriate for setting. - Labs CBC & Chem 7: 10/10/17 06:14 10/10/17 06:14 Labs: Abnormal Lab Results - Last 24 Hours (Table) 10/10/17 10/10/17 Range/Units 06:14 15:35 Glucose 103 H (74-99) mg/dL Total Protein 6.1 L (6.3-8.2) g/dL LDL Cholesterol, Calc 118 H (0-99) mg/dL Urine Appearance Cloudy H (Clear) Urine Mucus Rare H (None) /hpf Assessment and Plan (1) Seizure Current Visit: Yes Status: Acute Code(s): R56.9 - UNSPECIFIED CONVULSIONS SNOMED Code(s): 64900071 (2) Transient cerebral ischemia Current Visit: Yes Status: Acute Code(s): G45.9 - TRANSIENT CEREBRAL ISCHEMIC ATTACK, UNSPECIFIED SNOMED Code(s): 071070170 (3) Alzheimer's dementia Current Visit: Yes Status: Acute Code(s): G30.9 - ALZHEIMER'S DISEASE, UNSPECIFIED; F02.80 - DEMENTIA IN OTH DISEASES CLASSD ELSWHR W/O BEHAVRL DISTURB SNOMED Code(s): 35077609 Plan: 1. TIA Continue Plavix 75 mg by mouth daily. Carotid Doppler was negative. Prescribed Lipitor 40 mg by mouth daily at bedtime for elevated LDL Total cholesterol and triglycerides were normal. Serum homocysteine level was normal. Patient has noted prior event with old lacunar infarct noted on imaging. Patient must be on statin therapy based on prior event history and current TIA. 2. Seizure At this time, patient seizure status is still questionable. Patient has not had any activity similar to her recurrence prior to admission related to possible seizure since being started on Trileptal 150 mg twice a day. This will be a slow titration to possibly 300 mg twice a day in the outpatient setting. We'll reevaluate Trileptal use and dosing in the outpatient setting once discharged. EEG was conducted and found to be normal. Continue Trileptal 150 mg twice a day. 3. Alzheimer's patient he does have an extensive history of dementia/Alzheimer's which does appear to be quite advanced. Patient did not tolerate Aricept but is tolerating Exelon and Namenda. Exelon was started during this hospitalization. Continue Namenda and Exelon outpatient and existing dose and frequency. We' ll reevaluate in the outpatient setting on follow-up. Status: Neurology will clear the patient for discharge from a neurological standpoint. I have discussed the plan of care with the physician prior to implementation and he agrees with the plan as implemented.
[2017-10-10] MEDS: MELATONIN 3 MG TABLET PO SCH (21:02)
[2017-10-10] MEDS: QUEtiapine 50 MG TAB PO SCH (21:02)
[2017-10-10] MEDS: METOPROLOL SUCCINATE (ER) 50 MG TAB.ER.24H PO SCH (21:03)
[2017-10-10] MEDS: RIVASTIGMINE 4.6MG/24HR PATCH TRANSDERM SCH (21:03)
[2017-10-10] MEDS: ATORVASTATIN 40 MG TAB PO SCH (21:05)
[2017-10-11 06:46] LABS: Basophils % (A) 0 %; Eosinophils # (A) 0.2 k/uL (0-0.7); Eosinophils % (A) 4 %; HGB 12.1 gm/dL (11.4-16.0); Lymphocytes # (A) 1.2 k/uL (1.0-4.8); Lymphocytes % (A) 25 %; MCH 29.2 pg (25.0-35.0); MCHC 32.7 g/dL (31.0-37.0); MCV 89.1 fL (80.0-100.0); Mean Platelet Volume 7.4; Monocytes # (A) 0.4 k/uL (0-1.0); Monocytes % (A) 9 %; Neutrophils # (A) 2.7 k/uL (1.3-7.7); Neutrophils % (A) 58 %; Platelet Count 190 k/uL (150-450); RBC 4.16 m/uL (3.80-5.40); WBC 4.6 k/uL (3.8-10.6)
[2017-10-11 06:59] LABS: ALT 24 U/L (9-52); AST 19 U/L (14-36); Albumin 3.1 g/dL (3.5-5.0); Alkaline Phosphatase 68 U/L (38-126); Anion Gap 9 mmol/L; Blood Urea Nitrogen 19 mg/dL (7-17); Carbon Dioxide 28 mmol/L (22-30); Chloride 104 mmol/L (98-107); Glucose 96 mg/dL (74-99); Potassium 3.5 mmol/L (3.5-5.1); Sodium 141 mmol/L (137-145); Total Bilirubin 0.4 mg/dL (0.2-1.3); Total Protein 5.5 g/dL (6.3-8.2)
[2017-10-11] MEDS ORDERED: QUEtiapine 25 MG TAB PO SCH (09:00)
[2017-10-11] MEDS: FAMOTIDINE 20 MG TAB PO SCH ×2 (10:37→21:34)
[2017-10-11] MEDS: ESCITALOPRAM 20 MG TAB PO SCH (10:37)
[2017-10-11] MEDS: amLODIPine 5 MG TAB PO SCH (10:37)
[2017-10-11] MEDS: CLOPIDOGREL 75 MG TAB PO SCH (10:37)
[2017-10-11] MEDS: ATORVASTATIN 40 MG TAB PO SCH (10:38)
[2017-10-11] MEDS: OXcarbazepine 150 MG TAB PO SCH ×2 (10:38→21:34)
[2017-10-11] MEDS: ENOXAPARIN 30 MG/0.3 ML SYRINGE SQ SCH (10:38)
[2017-10-11] MEDS: ALPRAZolam 0.25 MG TAB PO SCH ×2 (10:38→15:35)
--- NOTE | 2017-10-11 10:56 | P.DS ---
Providers Date of admission: 10/09/17 11:26 Expected date of discharge: 10/11/17 Attending physician: Zita Mcintyre Consults: 10/09/17 11:27 Consult Physician Routine Consulting Provider: Shira Galloway Consult Reason/Comments: TIA Do you want consulting provider notified?: Yes Consult Physician Routine Consulting Provider: Monica Dunne Consult Reason/Comments: TIA Do you want consulting provider notified?: Yes Primary care physician: Steve Castro [facility] Course: This is an 82-year-old lady patient of Dr. Castro, known history of seizures. 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 Patient lives with the at home, and the patient was ambulating towards the bathroom, and the was wondering what takes her so long, when he came to investigate, patient was sitting the commode, leaving leaning over in the back seat and unresponsive, or decreased unresponsiveness. Patient has been tried to assist her she was not totally limp, and was able to get her out of the bathroom for further assistance. Approximately one hour has passed prior when this was discovered. EMS was subsequently transferred the patient to leave the [facility], however without any neurology service available at [facility], she was subsequent sent to [facility] When seen patient is alert and oriented 2, son provided most of the history, patient's of the historian 10/11: EEG was within normal limits. Carotid duplex showed less than 20% stenosis in both internal carotid arteries. Cardiology is following. Echocardiogram reveals Neurology is following. Patient was placed on Trileptal 150 mg twice daily with plan to increase at 300 mg twice a day in the office setting after discharge for new onset seizure. Patient is to continue Plavix and Lipitor for TIA. Neurology is recommending continuing Namenda and Exelon as an outpatient. She has been cleared for discharge by neurology. Patient had more sundowners last night but back to baseline today. Family members at bedside and updated. Plan for discharge to [facility] once Ins[employer]ancy authorization is obtained. Discharge diagnoses: 1 Metabolic encephalopathy with prolonged unresponsiveness, secondary to TIA or possible seizure--both remain in the differential and are treated. 2 Advanced dementia with behavioral disturbance 3 COPD without any exacerbation 4 Hypertensive cardiovascular disease 5 Generalized anxiety disorder Discharge plan: [facility] Impression and plan of care have been directed as dictated by the signing physician. Grace Toussaint nurse practitioner acting as scribe for signing physician. Patient Condition at Discharge: Good Plan - Discharge Summary Discharge Rx Participant: No New Discharge Prescriptions: New ALPRAZolam [Xanax] 0.25 mg PO 0800,1600 #60 tab Atorvastatin [Lipitor] 40 mg PO DAILY #0 tab Clopidogrel [Plavix] 75 mg PO DAILY #0 tab Escitalopram [Lexapro] 20 mg PO DAILY tab Melatonin 6 mg PO HS #0 tablet OXcarbazepine [Trileptal] 150 mg PO BID tab Continue Aspirin 81 mg PO DAILY amLODIPine [Norvasc] 5 mg PO HS QUEtiapine [SEROquel] 150 mg PO HS Rivastigmine Tartrate [Exelon] 3 mg PO BID Metoprolol Succinate (ER) [Toprol XL] 50 mg PO HS Lansoprazole [Prevacid] 15 mg PO DAILY Discontinued ALPRAZolam [Xanax] 0.25 mg PO BID Discharge Medication List Aspirin 81 mg PO DAILY 06/16/16 [History] amLODIPine [Norvasc] 5 mg PO HS 10/02/16 [History] Lansoprazole [Prevacid] 15 mg PO DAILY 10/09/17 [History] Metoprolol Succinate (ER) [Toprol XL] 50 mg PO HS 10/09/17 [History] QUEtiapine [SEROquel] 150 mg PO HS 10/09/17 [History] Rivastigmine Tartrate [Exelon] 3 mg PO BID 10/09/17 [History] ALPRAZolam [Xanax] 0.25 mg PO 0800,1600 #60 tab 10/11/17 [Rx] Atorvastatin [Lipitor] 40 mg PO DAILY #0 tab 10/11/17 [Rx] Clopidogrel [Plavix] 75 mg PO DAILY #0 tab 10/11/17 [Rx] Escitalopram [Lexapro] 20 mg PO DAILY tab 10/11/17 [Rx] Melatonin 6 mg PO HS #0 tablet 10/11/17 [Rx] OXcarbazepine [Trileptal] 150 mg PO BID tab 10/11/17 [Rx] Follow up Appointment(s)/Referral(s): Steve Castro MD [Primary Care Provider] - 1-2 days Monica Dunne MD [STAFF PHYSICIAN] - 1 Week Discharge Disposition: TRANSFER TO SNF/ECF
--- NOTE | 2017-10-11 11:27 | ECHOF ---
Referral Reason:TIA MEASUREMENTS -------- HEIGHT: 152.4 cm WEIGHT: 59.0 kg BP: 144/65 RVIDd: 2.9 cm (< 3.3) IVSd: 0.9 cm (0.6 - 1.1) LVIDd: 3.1 cm (3.9 - 5.3) LVPWd: 1.0 cm (0.6 - 1.1) IVSs: 1.3 cm LVIDs: 2.3 cm LVPWs: 1.1 cm LA Diam: 2.7 cm (2.7 - 3.8) LAESV Index (A-L): 15.99 ml/m Ao Diam: 3.2 cm (2.0 - 3.7) AV Cusp: 1.6 cm (1.5 - 2.6) MV EXCURSION: 11.562 mm (> 18.000) MV EF SLOPE: 53 mm/s (70 - 150) EPSS: 0.6 cm MV E Jose: 0.99 m/s MV DecT: 179 ms MV A Jose: 1.11 m/s MV E/A Ratio: 0.89 AR PHT: 916 ms RAP: 5.00 mmHg RVSP: 24.76 mmHg FINDINGS -------- Sinus rhythm. This was a technically adequate study. The left ventricular size is normal. Left ventricular wall thickness is normal. Overall left vent ricular systolic function is normal with, an EF between 60 - 65 %. The right ventricle is normal in size. The left atrial size is normal. The right atrium is normal in size. There is mild aortic valve sclerosis. There is mild aortic regurgitation. Mild mitral annular calcification present. No regurgitation noted Right ventricular systolic pressure is normal at < 35 mmHg. The aortic root size is normal. Normal inferior vena cava with normal inspiratory collapse consistent with estimated right atrial pre ssure of 5 mmHg. There is no pericardial effusion. CONCLUSIONS -------- 1. Sinus rhythm. 2. This was a technically adequate study. 3. The left ventricular size is normal. 4. Left ventricular wall thickness is normal. 5. Overall left ventricular systolic function is normal with, an EF between 60 - 65 %. 6. The right ventricle is normal in size. 7. The left atrial size is normal. 8. The right atrium is normal in size. 9. There is mild aortic valve sclerosis. 10. There is mild aortic regurgitation. 11. Mild mitral annular calcification present. 12. No regurgitation noted 13. Right ventricular systolic pressure is normal at < 35 mmHg. 14. The aortic root size is normal. 15. Normal inferior vena cava with normal inspiratory collapse consistent with estimated right atrial pressure of 5 mmHg. 16. There is no pericardial effusion. CONE TENDER: Amanda Cárdenas RDCS
--- NOTE | 2017-10-11 11:53 | PN ---
PROGRESS NOTE Mrs. Redd is a 82-year-old female who presented with possible syncopal episode of unclear etiology. On the monitor, she is stable. There is no evidence of tachy or bradyarrhythmia. She had an echocardiogram that revealed preserved ventricular size and systolic function. She has significant dementia. She continues to be on amlodipine 5 mg daily, Lipitor of 40 mg daily, Plavix 75 mg daily, Lexapro, metoprolol succinate 50 mg daily. PHYSICAL EXAMINATION: Blood pressure 123/60 with a heart in the 70s. LUNGS: Clear regular rhythm S1, S2. No S3. No rub. ABDOMEN: Soft, nontender. EXTREMITIES: No edema. LAB DATA: Revealed BUN and creatinine 19 and 0.7, potassium 3.5. IMPRESSION: 1. Syncopal episode of unclear etiology, possible neurological event. No clear evidence to suggest cardiac abnormalities. 2. Hypertension. 3. Significant dementia. RECOMMENDATION: From the cardiac standpoint, there is no indication for any further cardiac workup. We will see on as needed basis. Please feel free to call us for any questions. MMODL / IJN: [id number] /
--- NOTE | 2017-10-11 15:22 | P.PN ---
Subjective Progress Note Date: 10/11/17 This is an 82-year-old lady patient of Dr. Castro, known history of seizures. 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 Patient lives with the at home, and the patient was ambulating towards the bathroom, and the was wondering what takes her so long, when he came to investigate, patient was sitting the commode, leaving leaning over in the back seat and unresponsive, or decreased unresponsiveness. Patient has been tried to assist her she was not totally limp, and was able to get her out of the bathroom for further assistance. Approximately one hour has passed prior when this was discovered. EMS was subsequently transferred the patient to leave the [facility], however without any neurology service available at [facility], she was subsequent sent to [facility] When seen patient is alert and oriented 2, son provided most of the history, patient's of the historian 10/11: EEG was within normal limits. Carotid duplex showed less than 20% stenosis in both internal carotid arteries. Cardiology is following. Echocardiogram reveals EF of 60-65%, mild aortic valve sclerosis, mild aortic regurgitation, mild mitral calcification. Neurology is following. Patient was placed on Trileptal 150 mg twice daily with plan to increase at 300 mg twice a day in the office setting after discharge for new onset seizure. Patient is to continue Plavix and Lipitor for TIA. Neurology is recommending continuing Namenda and Exelon as an outpatient. She has been cleared for discharge by neurology. Patient had more sundowners last night but back to baseline today. Family members at bedside and updated. Plan for discharge to [facility] once Insurancy authorization is obtained. Insurance denied authorization for patient to be transferred to subacute rehab. Plan is for peer to peer review on Saturday. Objective - Vital Signs Vital signs: Vital Signs Temp 96.6 F L 10/11/17 12:00 Pulse 93 10/11/17 12:00 Resp 18 10/11/17 12:00 BP 120/69 10/11/17 12:00 Pulse Ox 93 L 10/11/17 12:00 Intake & Output 10/10/17 10/11/17 10/11/17 18:59 06:59 18:59 Intake Total 0 100 118 Output Total 300 Balance -300 100 118 Weight 60.5 kg Intake: Oral 0 100 118 Output: Urine 300 Other: Voiding Method Diaper Incontinent # Voids 1 3 # Bowel Movements 0 0 - Exam General appearance: cooperative, no acute distress - EENT Eyes: anicteric sclerae, EOMI, normal appearance ENT: NA/AT, normal oropharynx - Neck Neck: normal ROM - Respiratory Respiratory: bilateral: CTA, negative: diminished, dullness, rales, rhonchi, wheezing - Cardiovascular Rhythm: regular Heart sounds: normal: S1, S2 Abnormal Heart Sounds: no systolic murmur, no diastolic murmur, no rub, no S3 Gallop, no S4 Gallop, no click, no other - Gastrointestinal General gastrointestinal: normal bowel sounds, soft - Integumentary Integumentary: normal, normal turgor - Neurologic Neurologic: CNII-XII intact - Musculoskeletal Musculoskeletal: generalized weakness, strength equal bilaterally - Psychiatric Psychiatric: A&O x's 1, appropriate affect - Labs CBC & Chem 7: 10/11/17 06:08 10/11/17 06:08 Labs: Abnormal Lab Results - Last 24 Hours (Table) 10/10/17 10/11/17 Range/Units 15:35 06:08 BUN 19 H (7-17) mg/dL Total Protein 5.5 L (6.3-8.2) g/dL Albumin 3.1 L (3.5-5.0) g/dL Urine Appearance Cloudy H (Clear) Urine Mucus Rare H (None) /hpf Microbiology - Last 24 Hours (Table) 10/10/17 15:35 Urine Culture - Preliminary Urine,Clean Catch Assessment and Plan Plan: 1 Metabolic encephalopathy with prolonged unresponsiveness, secondary to TIA or possible seizure--both remain in the differential and are treated. Continue Trileptal 150 mg twice daily, Lipitor 40 mg daily, Plavix 75 mg daily. Neurology consult appreciated. 2 Advanced dementia with behavioral disturbance. Continue Xanax 0.25 mg twice daily scheduled, Lexapro 20 mg daily, Seroquel 150 mg at bedtime and Exelon patch every 24 hours. Neurology consult is appreciated. 3 COPD without any exacerbation 4 Hypertensive cardiovascular disease. Continue Norvasc 5 mg daily, Toprol-XL 50 mg at bedtime. 5 Generalized anxiety disorder. Continue Xanax. Discharge plan: [facility] next week Impression and plan of care have been directed as dictated by the signing physician. Grace Toussaint nurse practitioner acting as scribe for signing physician.
[2017-10-11] MEDS: MELATONIN 3 MG TABLET PO SCH (21:34)
[2017-10-11] MEDS: RIVASTIGMINE 4.6MG/24HR PATCH TRANSDERM SCH (21:34)
[2017-10-11] MEDS: METOPROLOL SUCCINATE (ER) 50 MG TAB.ER.24H PO SCH (21:34)
[2017-10-11] MEDS: QUEtiapine 50 MG TAB PO SCH (21:34)
[2017-10-12] MEDS: FAMOTIDINE 20 MG TAB PO SCH ×2 (08:01→20:33)
[2017-10-12] MEDS: ENOXAPARIN 30 MG/0.3 ML SYRINGE SQ SCH (08:01)
[2017-10-12] MEDS: ALPRAZolam 0.25 MG TAB PO SCH ×2 (08:01→15:42)
[2017-10-12] MEDS: ATORVASTATIN 40 MG TAB PO SCH (08:02)
[2017-10-12] MEDS: amLODIPine 5 MG TAB PO SCH (08:02)
[2017-10-12] MEDS: ESCITALOPRAM 20 MG TAB PO SCH (08:02)
[2017-10-12] MEDS: OXcarbazepine 150 MG TAB PO SCH ×2 (08:02→20:33)
[2017-10-12] MEDS: CLOPIDOGREL 75 MG TAB PO SCH (08:02)
--- NOTE | 2017-10-12 12:58 | P.PN ---
Subjective Progress Note Date: 10/12/17 Principal diagnosis: Encephalopathy Patient continued to be at baseline mental status where she is alert and oriented only to self family at the bedside including and 2 sons who reassured me that the patient is back at baseline mental status similar to home but patient has been experiencing worsening in her dementia recently where she is becoming dependent on most of her daily activity requiring prompt to swallow and one to one assistance in feeding. Patient is incontinent at the time. Patient still having episodes of agitation requiring medication to calm patient down Objective - Vital Signs Vital signs: Vital Signs Temp 98.4 F 10/12/17 07:00 Pulse 71 10/12/17 07:00 Resp 18 10/12/17 07:00 BP 134/78 10/12/17 07:00 Pulse Ox 95 10/12/17 07:00 Intake & Output 10/11/17 10/12/17 10/12/17 18:59 06:59 18:59 Intake Total 118 220 Balance 118 220 Intake: Oral 118 220 Other: Voiding Method Diaper Diaper Incontinent Incontinent # Voids 3 2 # Bowel Movements 0 - Exam Gen.: in stated age, no acute distress Heart: Normal S1-S2 Lungs: Clear to auscultation bilaterally Abdomen: Soft, no tenderness, positive bowel sounds in all 4 quadrant no guarding or rebound Skin: No new rash Psych: Alert and oriented 1 only Neuro: No focal deficit - Labs CBC & Chem 7: 10/11/17 06:08 10/11/17 06:08 Labs: Microbiology - Last 24 Hours (Table) 10/10/17 15:35 Urine Culture - Final Urine,Clean Catch Strep agalactiae - (group b) Assessment and Plan Assessment: 1. Altered mental status likely related to worsening dementia. 2. Moderate to severe protein calorie malnutrition with decreased oral intake. 3. Serial debility and deconditioning. 4. COPD. 5. Hypertension. 6. Anemia. I had long discussion with the patient and 2 sons regarding her current disease and management on the long run patient's family agreeable to discharge to a [place] [facility] [place] as patient is becoming dependent in most of her daily activity requiring assistance with one to one and her feeding and daily activities. We will continue encouraging oral intake continue with anxiety medication and reorientation plan discussed with the nursing staff and we will have physical and neck patient will therapy regarding discharge planning to a rehab facility on Saturday
[2017-10-12] MEDS: METOPROLOL SUCCINATE (ER) 50 MG TAB.ER.24H PO SCH (20:33)
[2017-10-12] MEDS: QUEtiapine 50 MG TAB PO SCH (20:33)
[2017-10-12] MEDS: RIVASTIGMINE 4.6MG/24HR PATCH TRANSDERM SCH (20:33)
[2017-10-12] MEDS: MELATONIN 3 MG TABLET PO SCH (20:33)
[2017-10-13] MEDS: FAMOTIDINE 20 MG TAB PO SCH ×2 (08:38→22:41)
[2017-10-13] MEDS: ALPRAZolam 0.25 MG TAB PO SCH ×2 (08:38→16:11)
[2017-10-13] MEDS: ENOXAPARIN 30 MG/0.3 ML SYRINGE SQ SCH (08:38)
[2017-10-13] MEDS: amLODIPine 5 MG TAB PO SCH (08:39)
[2017-10-13] MEDS: ATORVASTATIN 40 MG TAB PO SCH (08:39)
[2017-10-13] MEDS: OXcarbazepine 150 MG TAB PO SCH ×2 (08:39→22:41)
[2017-10-13] MEDS: CLOPIDOGREL 75 MG TAB PO SCH (08:39)
[2017-10-13] MEDS: ESCITALOPRAM 20 MG TAB PO SCH (08:39)
[2017-10-13] MEDS ORDERED: ALPRAZolam 0.25 MG TAB PO PRN (11:24)
--- NOTE | 2017-10-13 12:12 | P.PN ---
Subjective Progress Note Date: 10/13/17 Principal diagnosis: Encephalopathy Patient is still confused but at baseline mental status where she is alert and oriented 1 only. at the bedside requesting Xanax to control her fidgety. Agent is tolerating diet but requires assistance with all her daily activities Objective - Vital Signs Vital signs: Vital Signs Temp 98.0 F 10/13/17 06:00 Pulse 67 10/13/17 06:00 Resp 18 10/13/17 06:00 BP 166/81 10/13/17 06:00 Pulse Ox 92 L 10/13/17 06:00 Intake & Output 10/12/17 10/13/17 10/13/17 18:59 06:59 18:59 Intake Total 100 Balance 100 Intake: Oral 100 Other: Voiding Method Diaper Diaper Diaper Incontinent Incontinent Incontinent # Voids 2 1 # Bowel Movements 0 - Exam Gen.: in stated age, no acute distress Heart: Normal S1-S2 Lungs: Clear to auscultation bilaterally Abdomen: Soft, no tenderness, positive bowel sounds in all 4 quadrant no guarding or rebound Skin: No new rash Psych: Alert and oriented 1 only Neuro: No focal deficit - Labs CBC & Chem 7: 10/11/17 06:08 10/11/17 06:08 Assessment and Plan Assessment: 1. Altered mental status likely related to worsening dementia. 2. Moderate to severe protein calorie malnutrition with decreased oral intake. 3. Serial debility and deconditioning. 4. COPD. 5. Hypertension. 6. Anemia. I had long discussion with the patient and 2 sons regarding her current disease and management on the long run patient's family agreeable to discharge to a detention as patient is becoming dependent in most of her daily activity requiring assistance with one to one and her feeding and daily activities. We will continue encouraging oral intake continue with anxiety medication and reorientation plan discussed with the nursing staff and we will have physical and neck patient will therapy regarding discharge planning to a rehab facility on Saturday I had long discussion with this morning was agreeable to the current treatment plan and discuss that with the nursing staff where I started the patient's on scheduled Xanax and as needed at the same time
[2017-10-13] MEDS: QUEtiapine 50 MG TAB PO SCH (22:41)
[2017-10-13] MEDS: METOPROLOL SUCCINATE (ER) 50 MG TAB.ER.24H PO SCH (22:41)
[2017-10-13] MEDS: MELATONIN 3 MG TABLET PO SCH (22:41)
[2017-10-13] MEDS: RIVASTIGMINE 4.6MG/24HR PATCH TRANSDERM SCH (22:41)
[2017-10-14] MEDS: ALPRAZolam 0.25 MG TAB PO SCH ×2 (09:06→15:36)
[2017-10-14] MEDS: amLODIPine 5 MG TAB PO SCH (09:07)
[2017-10-14] MEDS: FAMOTIDINE 20 MG TAB PO SCH (09:07)
[2017-10-14] MEDS: ENOXAPARIN 30 MG/0.3 ML SYRINGE SQ SCH (09:08)
[2017-10-14] MEDS: ATORVASTATIN 40 MG TAB PO SCH (09:08)
[2017-10-14] MEDS: OXcarbazepine 150 MG TAB PO SCH (09:08)
[2017-10-14] MEDS: ESCITALOPRAM 20 MG TAB PO SCH (09:08)
[2017-10-14] MEDS: CLOPIDOGREL 75 MG TAB PO SCH (09:08)
--- NOTE | 2017-10-14 13:12 | P.PN ---
Subjective This is an 82-year-old lady patient of Dr. Castro, known history of seizures. She, as mentioned, osteoarthritis and CVA in the past Alzheimer's dementia with behaviors, requiring maintenance psychotropics, has been stable at home environment however she was sent to the emergency room first evaluated at [facility] secondary to prolonged unresponsiveness. Patient lives with the at home, and the patient was ambulating towards the bathroom, and the was wondering what takes her so long, when he came to investigate, patient was sitting the commode, leaving leaning over in the back seat and unresponsive, or decreased unresponsiveness. Patient has been tried to assist her she was not totally limp, and was able to get her out of the bathroom for further assistance. Approximately one hour has passed prior when this was discovered. EMS was subsequently transferred the patient to leave the [facility], however without any neurology service available at [facility], she was subsequent sent to [facility] When seen patient is alert and oriented 2, son provided most of the history, patient's of the historian 10/11: EEG was within normal limits. Carotid duplex showed less than 20% stenosis in both internal carotid arteries. Cardiology is following. Echocardiogram reveals EF of 60-65%, mild aortic valve sclerosis, mild aortic regurgitation, mild mitral calcification. Neurology is following. Patient was placed on Trileptal 150 mg twice daily with plan to increase at 300 mg twice a day in the office setting after discharge for new onset seizure. Patient is to continue Plavix and Lipitor for TIA. Neurology is recommending continuing Namenda and Exelon as an outpatient. She has been cleared for discharge by neurology. Patient had more sundowners last night but back to baseline today. Family members at bedside and updated. Plan for discharge to [facility] once Insurancy authorization is obtained. Insurance denied authorization for patient to be transferred to subacute rehab. Plan is for peer to peer review on Saturday. 10/12: Patient continued to be at baseline mental status where she is alert and oriented only to self family at the bedside including and 2 sons who reassured me that the patient is back at baseline mental status similar to home but patient has been experiencing worsening in her dementia recently where she is becoming dependent on most of her daily activity requiring prompt to swallow and one to one assistance in feeding. Patient is incontinent at the time. Patient still having episodes of agitation requiring medication to calm patient down. 10/13: Patient is still confused but at baseline mental status where she is alert and oriented 1 only. at the bedside requesting Xanax to control her fidgety. Agent is tolerating diet but requires assistance with all her daily activities. 10/14: Patient was seen and evaluated today, she is doing well, remains confused , but is at baseline. Vital signs have been stable. Discharge held do to patient needs terminal operations manager care placement and not acute rehab. Objective - Vital Signs Vital signs: Vital Signs Temp 98.6 F 10/14/17 05:48 Pulse 75 10/14/17 05:48 Resp 17 10/14/17 09:10 BP 123/68 10/14/17 05:48 Pulse Ox 93 L 10/14/17 05:48 Intake & Output 10/13/17 10/14/17 10/14/17 18:59 06:59 18:59 Intake Total 220 Output Total 300 Balance -80 Weight 60.5 kg Intake: Oral 220 Output: Urine 300 Other: Voiding Method Diaper Diaper Diaper Incontinent Incontinent Incontinent # Voids 1 2 # Bowel Movements 0 - Exam - Exam General appearance: cooperative, no acute distress - EENT Eyes: anicteric sclerae, EOMI, normal appearance ENT: NA/AT, normal oropharynx - Neck Neck: normal ROM - Respiratory Respiratory: bilateral: CTA, negative: diminished, dullness, rales, rhonchi, wheezing - Cardiovascular Rhythm: regular Heart sounds: normal: S1, S2 Abnormal Heart Sounds: no systolic murmur, no diastolic murmur, no rub, no S3 Gallop, no S4 Gallop, no click, no other - Gastrointestinal General gastrointestinal: normal bowel sounds, soft - Integumentary Integumentary: normal, normal turgor - Neurologic Neurologic: CNII-XII intact - Musculoskeletal Musculoskeletal: generalized weakness, strength equal bilaterally - Psychiatric Psychiatric: A&O x's 1, appropriate affect - Labs CBC & Chem 7: 10/11/17 06:08 10/11/17 06:08 Assessment and Plan Plan: 1 Metabolic encephalopathy with prolonged unresponsiveness, secondary to TIA or possible seizure--both remain in the differential and are treated. Continue Trileptal 150 mg twice daily, Lipitor 40 mg daily, Plavix 75 mg daily. Neurology consult appreciated. 2 Advanced dementia with behavioral disturbance. Continue Xanax 0.25 mg twice daily scheduled, Lexapro 20 mg daily, Seroquel 150 mg at bedtime and Exelon patch every 24 hours. Neurology consult is appreciated. 3 COPD without any exacerbation. 4 Hypertensive cardiovascular disease. Continue Norvasc 5 mg daily, Toprol-XL 50 mg at bedtime. 5 Generalized anxiety disorder. Continue Xanax. Discharge plan: [facility] The above impression and plan of care have been discussed and directed by signing physician, patient was seen and evaluation by signing physician. Sonya Issa nurse practitioner acting as scribe.
[2017-10-14 14:50] VITALS: BP 107/62; PULSE 79; RESP 16; TEMP 98.4
--- NOTE | 2017-10-14 16:30 | P.DS ---
Providers Date of admission: 10/09/17 11:26 Attending physician: Zita Mcintyre Consults: 10/09/17 11:27 Consult Physician Routine Consulting Provider: Shira Galloway Consult Reason/Comments: TIA Do you want consulting provider notified?: Yes Consult Physician Routine Consulting Provider: Monica Dunne Consult Reason/Comments: TIA Do you want consulting provider notified?: Yes Primary care physician: Steve Matthew [facility] Course: This is an 82-year-old lady patient of Dr. aCstro, known history of seizures. 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 Patient lives with the at home, and the patient was ambulating towards the bathroom, and the was wondering what takes her so long, when he came to investigate, patient was sitting the commode, leaving leaning over in the back seat and unresponsive, or decreased unresponsiveness. Patient has been tried to assist her she was not totally limp, and was able to get her out of the bathroom for further assistance. Approximately one hour has passed prior when this was discovered. EMS was subsequently transferred the patient to leave the [facility], however without any neurology service available at [facility], she was subsequent sent to [facility] When seen patient is alert and oriented 2, son provided most of the history, patient's of the historian 10/11: EEG was within normal limits. Carotid duplex showed less than 20% stenosis in both internal carotid arteries. Cardiology is following. Echocardiogram reveals EF of 60-65%, mild aortic valve sclerosis, mild aortic regurgitation, mild mitral calcification. Neurology is following. Patient was placed on Trileptal 150 mg twice daily with plan to increase at 300 mg twice a day in the office setting after discharge for new onset seizure. Patient is to continue Plavix and Lipitor for TIA. Neurology is recommending continuing Namenda and Exelon as an outpatient. She has been cleared for discharge by neurology. Patient had more sundowners last night but back to baseline today. Family members at bedside and updated. Plan for discharge to [facility] once Ins[employer]ancy authorization is obtained. Insurance denied authorization for patient to be transferred to subacute rehab. Plan is for peer to peer review on Saturday. 10/12: Patient continued to be at baseline mental status where she is alert and oriented only to self family at the bedside including and 2 sons who reassured me that the patient is back at baseline mental status similar to home but patient has been experiencing worsening in her dementia recently where she is becoming dependent on most of her daily activity requiring prompt to swallow and one to one assistance in feeding. Patient is incontinent at the time. Patient still having episodes of agitation requiring medication to calm patient down. 10/13: Patient is still confused but at baseline mental status where she is alert and oriented 1 only. at the bedside requesting Xanax to control her fidgety. Agent is tolerating diet but requires assistance with all her daily activities. 10/14: Patient was seen and evaluated today, she is doing well, remains confused , but is at baseline. Vital signs have been stable. Discharge held do to patient needs penitentiary care placement and not acute rehab. Patient will be sent to intermediate facility at [facility]. Discharge diagnoses: 1 Metabolic encephalopathy with prolonged unresponsiveness, secondary to TIA or possible seizure--both remain in the differential and are treated. 2 Advanced dementia with behavioral disturbance 3 COPD without any exacerbation 4 Hypertensive cardiovascular disease 5 Generalized anxiety disorder Discharge plan: [facility] Patient Condition at Discharge: Good Plan - Discharge Summary Discharge Rx Participant: No New Discharge Prescriptions: New ALPRAZolam [Xanax] 0.25 mg PO 0800,1600 #60 tab Atorvastatin [Lipitor] 40 mg PO DAILY #0 tab Clopidogrel [Plavix] 75 mg PO DAILY #0 tab Escitalopram [Lexapro] 20 mg PO DAILY tab Melatonin 6 mg PO HS #0 tablet OXcarbazepine [Trileptal] 150 mg PO BID tab Continue Aspirin 81 mg PO DAILY amLODIPine [Norvasc] 5 mg PO HS QUEtiapine [SEROquel] 150 mg PO HS Rivastigmine Tartrate [Exelon] 3 mg PO BID Metoprolol Succinate (ER) [Toprol XL] 50 mg PO HS Lansoprazole [Prevacid] 15 mg PO DAILY Discontinued ALPRAZolam [Xanax] 0.25 mg PO BID Discharge Medication List Aspirin 81 mg PO DAILY 06/16/16 [History] amLODIPine [Norvasc] 5 mg PO HS 10/02/16 [History] Lansoprazole [Prevacid] 15 mg PO DAILY 10/09/17 [History] Metoprolol Succinate (ER) [Toprol XL] 50 mg PO HS 10/09/17 [History] QUEtiapine [SEROquel] 150 mg PO HS 10/09/17 [History] Rivastigmine Tartrate [Exelon] 3 mg PO BID 10/09/17 [History] ALPRAZolam [Xanax] 0.25 mg PO 0800,1600 #60 tab 10/11/17 [Rx] Atorvastatin [Lipitor] 40 mg PO DAILY #0 tab 10/11/17 [Rx] Clopidogrel [Plavix] 75 mg PO DAILY #0 tab 10/11/17 [Rx] Escitalopram [Lexapro] 20 mg PO DAILY tab 10/11/17 [Rx] Melatonin 6 mg PO HS #0 tablet 10/11/17 [Rx] OXcarbazepine [Trileptal] 150 mg PO BID tab 10/11/17 [Rx] Follow up Appointment(s)/Referral(s): Steve Castro MD [Primary Care Provider] - 1-2 days Monica Dunne MD [STAFF PHYSICIAN] - 1 Week [facility] Visiting Nurse, [NON-STAFF] - Discharge Disposition: TRANSFER TO SNF/ECF
[2017-10-15] MEDS ORDERED: FAMOTIDINE 20 MG TAB PO SCH (09:00)
== END 2017-10-14 18:00 ==
LOC: EC 11:11 → EEVIPCON 11:26 → 6SEL 11:26 → 4MS4W 10-11 16:33
PROVIDERS: ADMIT Family Medicine; ATTEND Family Medicine
DX: G93.41 Metabolic encephalopathy (principal); G45.9 Transient cerebral ischemic attack, unspecified; R56.9 Unspecified convulsions; G30.9 Alzheimer's disease, unspecified; F02.81 Dementia in other diseases classified elsewhere, unspecified severity, with behavioral disturbance; F05 Delirium due to known physiological condition; J44.9 Chronic obstructive pulmonary disease, unspecified; I11.9 Hypertensive heart disease without heart failure; F41.1 Generalized anxiety disorder; M19.90 Unspecified osteoarthritis, unspecified site; R32 Unspecified urinary incontinence; K21.9 Gastro-esophageal reflux disease without esophagitis; E66.9 Obesity, unspecified; Z68.26 Body mass index [BMI] 26.0-26.9, adult; Z86.73 Personal history of transient ischemic attack (TIA), and cerebral infarction without residual deficits; M54.5 Low back pain; G89.29 Other chronic pain; D64.9 Anemia, unspecified; E43 Unspecified severe protein-calorie malnutrition; E78.00 Pure hypercholesterolemia, unspecified; F32.9 Major depressive disorder, single episode, unspecified; Z82.49 Family history of ischemic heart disease and other diseases of the circulatory system; Z80.0 Family history of malignant neoplasm of digestive organs; Z79.82 Long term (current) use of aspirin; Z79.899 Other long term (current) drug therapy; Z88.2 Allergy status to sulfonamides; Z88.1 Allergy status to other antibiotic agents; Z87.440 Personal history of urinary (tract) infections; Z79.52 Long term (current) use of systemic steroids
CPT/HCPCS: 99285; 96372 ×5; 95816; 93306; 97530 ×2; 97162; 97535; 97166; 80061; 80053 ×2; 84443; 84484; 85025 ×2; 81001; 83090; 87086; 93880; G0378 ×6; J1650 ×5

== ENCOUNTER 2017-10-16 19:42 | Emergency (ER) | payer MEDICARE ==
[2017-10-16 20:22] VITALS: RESP 18
[2017-10-16] MEDS ORDERED: DIPH,PERTUS(ACELL)TETVAC-LF 0.5 ML VIAL IM ONE (20:39)
--- NOTE | 2017-10-16 21:23 | ED ---
Fall HPI - General Chief Complaint: Fall Stated Complaint: FALL Time Seen by Provider: 10/16/17 20:19 Source: EMS Mode of arrival: EMS - History of Present Illness Initial Comments: 82-year-old female patient presents to the emergency department today for evaluation after experiencing a fall out of her wheelchair. Patient is a past medical history significant for Alzheimer's dementia and is therefore a poor historian. Staff at the nursing facility reported to EMS that she fell from her wheelchair. They do report head injury with laceration to her posterior scalp. They are unsure if she lost consciousness, staff reported that she was alone for approximately one minute and was alert when they came back into the room. She does take Plavix. Patient denies any headache, neck pain, back pain, dizziness, blurred vision, or double vision. She denies any injuries. Patient denies any chest pain, shortness of breath, abdominal pain, nausea, vomiting, or difficulties with bowel movements or urination. - Related Data Home Medications Medication Instructions Recorded Confirmed Aspirin 81 mg PO DAILY 06/16/16 10/16/17 Lansoprazole [Prevacid] 15 mg PO DAILY 10/09/17 10/16/17 Metoprolol Succinate (ER) [Toprol 50 mg PO HS 10/09/17 10/16/17 XL] QUEtiapine [SEROquel] 150 mg PO HS 10/09/17 10/16/17 Rivastigmine Tartrate [Exelon] 3 mg PO BID 10/09/17 10/16/17 ALPRAZolam [Xanax] 0.25 mg PO DAILY@0800,1700 10/16/17 10/16/17 Bisacodyl [Dulcolax] 10 mg RECTAL DAILY PRN 10/16/17 10/16/17 Magnesium Hydroxide [Milk of 2,400 mg PO DAILY PRN 10/16/17 10/16/17 Magnesia] Na Phos,M-B/Na Phos,Di-Ba [Fleet 1 dose RECTAL DAILY PRN 10/16/17 10/16/17 Adult] amLODIPine [Norvasc] 10 mg PO DAILY 10/16/17 10/16/17 Previous Rx's Medication Instructions Recorded Atorvastatin [Lipitor] 40 mg PO DAILY #0 tab 10/11/17 Clopidogrel [Plavix] 75 mg PO DAILY #0 tab 10/11/17 Escitalopram [Lexapro] 20 mg PO DAILY tab 10/11/17 Melatonin 6 mg PO HS #0 tablet 10/11/17 OXcarbazepine [Trileptal] 150 mg PO BID tab 10/11/17 Allergies Allergy/AdvReac Type Severity Reaction Status Date / Time metronidazole [From Flagyl] Allergy Unknown Unknown Verified 10/16/17 20:27 Metronidazole HCl Allergy Unknown Unknown Verified 10/16/17 20:27 [From Flagyl] sulfadiazine [Sulfadiazine] Allergy Unknown Verified 10/16/17 20:27 Review of Systems ROS Statement: Those systems with pertinent positive or pertinent negative responses have been documented in the HPI. ROS Other: All systems not noted in ROS Statement are negative. Past Medical History Past Medical History: Asthma, COPD, CVA/TIA, Dementia, GERD/Reflux, Hypertension , Memory Impairment, Osteoarthritis (OA) Additional Past Medical History / Comment(s): 2011 TIA, migraines in the past, low L sided back pain, ulcerative colitis, past L pretivia wound/injury. History of Any Multi-Drug Resistant Organisms: None Reported Past Surgical History: Bladder Surgery, Hysterectomy, Joint Replacement Additional Past Surgical History / Comment(s): R eye surgery for strabismus, bilateral total knee arthroplasties, R abdominal lipoma removed, bladder suspension, rectocele repair, colonoscopy, D&C, bilateral cataract removals. Past Anesthesia/Blood Transfusion Reactions: Postoperative Nausea & Vomiting ( PONV) Past Psychological History: No Psychological Hx Reported Smoking Status: Never smoker Past Alcohol Use History: Unable to Obtain Past Drug Use History: Unable to Obtain - Past Family History Father History Unknown: Yes Family Medical History: Neurologic Disorder (Dementia) Additional Family Medical History / Comment(s): cardiac issues Mother History Unknown: Yes Family Medical History: Dementia, Osteoarthritis (OA) Additional Family Medical History / Comment(s): Alzheimers General Exam Limitations: altered mental status General appearance: alert, in no apparent distress, other (This is a well- developed, well-nourished elderly female patient in no acute distress. Vital signs upon presentation are temperature 98.4F, pulse 63, respirations 18, blood pressure 142/63, pulse ox 93% on room air.) Head exam: Present: other (0.5cm laceration to the occipital scalp. Mild surrounding soft tissue swelling. No bony step off or deformity noted with palpation of the cranium. ) Eye exam: Present: normal appearance, PERRL, EOMI. Absent: scleral icterus, conjunctival injection, periorbital swelling ENT exam: Present: normal exam, normal oropharynx, mucous membranes moist Neck exam: Present: normal inspection. Absent: tenderness, meningismus, full ROM (C-collar in place), lymphadenopathy Respiratory exam: Present: normal lung sounds bilaterally. Absent: respiratory distress, wheezes, rales, rhonchi, stridor Cardiovascular Exam: Present: regular rate, normal rhythm, normal heart sounds. Absent: systolic murmur, diastolic murmur, rubs, gallop, clicks GI/Abdominal exam: Present: soft, normal bowel sounds. Absent: distended, tenderness, guarding, rebound, rigid Extremities exam: Present: normal inspection, full ROM, tenderness (Right hip tenderness), normal capillary refill, other (Skin to the lower extremities is pink, warm, and dry. Cap refills less than 3 seconds. Pedal posttibial pulses are 2+ and equal bilaterally.). Absent: pedal edema, joint swelling, calf tenderness Neurological exam: Present: alert, oriented X3, CN II-XII intact Psychiatric exam: Present: normal affect, normal mood Skin exam: Present: warm, dry, intact, normal color. Absent: rash Course Vital Signs 10/16/17 10/16/17 19:44 22:15 Temperature 98.4 F 97 F L Pulse Rate 63 73 Respiratory 18 18 Rate Blood Pressure 142/64 139/64 O2 Sat by Pulse 93 L 95 Oximetry Medical Decision Making - Medical Decision Making 82-year-old female patient presented to the emergency department today for evaluation after experiencing a fall. Physical examination did reveal a small 0.5 cm laceration to the posterior scalp. Patient did have a c-collar in place upon presentation however had no posterior cervical tenderness. Patient did exhibit some right hip tenderness. Neurovascular status to the right lower, he was intact. X-ray of the right hip and pelvis was negative for any acute fracture. CT of the brain and C-spine were performed and showed no acute abnormalities. C-collar was removed patient had full range of motion without any pain or limitation. Did discuss findings and results with the patient she' ll be discharged back to assisted facility. Return parameters discussed in detail. She verbalizes understanding. - Radiology Data Radiology results: report reviewed, image reviewed Single AP view of the pelvis and 2 views of the right hip are obtained. Pelvic ring appears intact. Proximal right femur and hip joints appear intact. There is no evidence for fracture. Sacroiliac joints are intact. Hip joint spaces are fairly normal. Conclusion by Dr. Rojas shows no acute abnormality of the pelvis and right hip. Disposition Clinical Impression: Head injury, Laceration of occipital scalp Disposition: HOME SELF-CARE Condition: Good Instructions: Laceration (ED), Fall Prevention for Older Adults (ED), Head Injury (ED) Additional Instructions: Keep wound clean and dry. Monitor for signs or symptoms of worsening head injury. Follow-up with the primary care physician for recheck in 1-2 days. Return here immediately for any new, worsening, or concerning symptoms. Is patient prescribed a controlled substance at d/c from ED?: No Referrals: Steve Castro MD [Primary Care Provider] - 1-2 days Time of Disposition: 21:58
--- NOTE | 2017-10-16 21:26 | CT ---
EXAMINATION TYPE: CT brain [facility] [place] DATE OF EXAM: 10/16/2017 COMPARISON: Head CT scan 06/16/2016 HISTORY: laceration to posterior head after fall injury. CT DLP: 1308.2 mGycm Automated exposure control for dose reduction was used. TECHNIQUE: CT scan of the head and cervical spine are performed without contrast. FINDINGS: There is cerebral cortical atrophy. There is mild hypodensity in the periventricular whit e matter. There is no mass effect nor midline shift. There is no sign of intracranial hemorrhage. The calvarium is intact. There is incomplete pneumatization of the mastoid sinuses. There is a 4 mm anterior subluxation of C4 in relation to C5. There is hypertrophic cervical facet ar thropathy. I see no fracture. There is degenerative disc space narrowing at C5-6 C6-7 with spurring o f the endplates. Skull base is intact. There is no evidence of a cervical spine fracture. IMPRESSION: Cerebral atrophy and mild chronic small vessel ischemia. No acute abnormality. No change. Spondylotic changes in the cervical spine. Degenerative first-degree C4-5 spondylolisthesis. No fract ure.
--- NOTE | 2017-10-16 21:28 | XR ---
EXAMINATION TYPE: XR Hip RT and AP Pelvis DATE OF EXAM: 10/16/2017 COMPARISON: NONE HISTORY: Pain TECHNIQUE: A single AP view of the pelvis is obtained. Two views of the right hip are obtained. FINDINGS: The pelvic ring appears intact. Proximal right femur and hip joint appear intact. There is no evidence of a fracture. Sacroiliac joints are intact. Hip joint spaces fairly normal. CONCLUSION: No acute abnormality of the pelvis and right hip.
[2017-10-16] MEDS ORDERED: ACETAMINOPHEN TAB 325 MG TAB PO STA (21:58)
[2017-10-16 22:15] VITALS: BP 139/64; PULSE 73; TEMP 97
== END 2017-10-16 23:30 | disposition home or self-care (01) ==
LOC: EC 19:42
DX: S01.01XA Laceration without foreign body of scalp, initial encounter (principal); K21.9 Gastro-esophageal reflux disease without esophagitis; I10 Essential (primary) hypertension; G30.9 Alzheimer's disease, unspecified; F02.80 Dementia in other diseases classified elsewhere, unspecified severity, without behavioral disturbance, psychotic disturbance, mood disturbance, and anxiety; Z96.653 Presence of artificial knee joint, bilateral; Z86.73 Personal history of transient ischemic attack (TIA), and cerebral infarction without residual deficits; Z79.82 Long term (current) use of aspirin; Z79.899 Other long term (current) drug therapy; Z88.1 Allergy status to other antibiotic agents; Z23 Encounter for immunization; W05.0XXA Fall from non-moving wheelchair, initial encounter
CPT/HCPCS: 70450; 72125; 73502; 90471; 90715; 99284

== ENCOUNTER 2017-11-18 11:07 | Emergency (ER) | payer MEDICARE ==
[2017-11-18] MEDS ORDERED: TOPICAL SKIN ADHESIVE 1 EACH AMP TOPICAL STA (11:29)
[2017-11-18 11:31] VITALS: BP 149/67; PULSE 78; RESP 18; TEMP 98.3
--- NOTE | 2017-11-18 11:32 | ED ---
General Adult HPI - General Stated complaint: fall Time Seen by Provider: 11/18/17 11:11 Source: patient, EMS, RN notes reviewed Mode of arrival: EMS Limitations: altered mental status - History of Present Illness Initial comments: Patient is a pleasant 82-year-old female presenting to the emergency department following a fall. Incident occurred just prior to arrival. It is reported the patient did not lose consciousness and there is no change in baseline mental status. Patient has no complaints at this time. Patient denies any significant pain. No chest pain or dyspnea. - Related Data Home Medications Medication Instructions Recorded Confirmed Aspirin 81 mg PO DAILY 06/16/16 10/16/17 Lansoprazole [Prevacid] 15 mg PO DAILY 10/09/17 10/16/17 Metoprolol Succinate (ER) [Toprol 50 mg PO HS 10/09/17 10/16/17 XL] QUEtiapine [SEROquel] 150 mg PO HS 10/09/17 10/16/17 Rivastigmine Tartrate [Exelon] 3 mg PO BID 10/09/17 10/16/17 ALPRAZolam [Xanax] 0.25 mg PO DAILY@0800,1700 10/16/17 10/16/17 Bisacodyl [Dulcolax] 10 mg RECTAL DAILY PRN 10/16/17 10/16/17 Magnesium Hydroxide [Milk of 2,400 mg PO DAILY PRN 10/16/17 10/16/17 Magnesia] Na Phos,M-B/Na Phos,Di-Ba [Fleet 1 dose RECTAL DAILY PRN 10/16/17 10/16/17 Adult] amLODIPine [Norvasc] 10 mg PO DAILY 10/16/17 10/16/17 Previous Rx's Medication Instructions Recorded Atorvastatin [Lipitor] 40 mg PO DAILY #0 tab 10/11/17 Clopidogrel [Plavix] 75 mg PO DAILY #0 tab 10/11/17 Escitalopram [Lexapro] 20 mg PO DAILY tab 10/11/17 Melatonin 6 mg PO HS #0 tablet 10/11/17 OXcarbazepine [Trileptal] 150 mg PO BID tab 10/11/17 Amoxicillin 500 mg PO Q8H #30 capsule 11/18/17 Allergies Allergy/AdvReac Type Severity Reaction Status Date / Time metronidazole [From Flagyl] Allergy Unknown Unknown Verified 11/18/17 11:30 Metronidazole HCl Allergy Unknown Unknown Verified 11/18/17 11:30 [From Flagyl] sulfadiazine [Sulfadiazine] Allergy Unknown Verified 11/18/17 11:30 Review of Systems ROS Statement: Those systems with pertinent positive or pertinent negative responses have been documented in the HPI. ROS Other: All systems not noted in ROS Statement are negative. Constitutional: Denies: fever Eyes: Denies: eye pain ENT: Denies: ear pain Respiratory: Denies: cough Cardiovascular: Denies: chest pain Endocrine: Denies: fatigue Gastrointestinal: Denies: abdominal pain Genitourinary: Denies: dysuria Musculoskeletal: Denies: back pain Skin: Denies: rash Neurological: Denies: headache Past Medical History Past Medical History: Asthma, COPD, CVA/TIA, Dementia, GERD/Reflux, Hypertension , Memory Impairment, Osteoarthritis (OA) Additional Past Medical History / Comment(s): 2011 TIA, migraines in the past, low L sided back pain, ulcerative colitis, past L pretivia wound/injury. History of Any Multi-Drug Resistant Organisms: None Reported Past Surgical History: Bladder Surgery, Hysterectomy, Joint Replacement Additional Past Surgical History / Comment(s): R eye surgery for strabismus, bilateral total knee arthroplasties, R abdominal lipoma removed, bladder suspension, rectocele repair, colonoscopy, D&C, bilateral cataract removals. Past Anesthesia/Blood Transfusion Reactions: Postoperative Nausea & Vomiting ( PONV) Past Alcohol Use History: None Reported Past Drug Use History: None Reported - Past Family History Father History Unknown: Yes Family Medical History: Neurologic Disorder (Dementia) Additional Family Medical History / Comment(s): cardiac issues Mother History Unknown: Yes Family Medical History: Dementia, Osteoarthritis (OA) Additional Family Medical History / Comment(s): Alzheimers General Exam Limitations: no limitations General appearance: alert, in no apparent distress Head exam: Present: other (Left eyebrow laceration) Eye exam: Present: normal appearance, PERRL, EOMI ENT exam: Present: normal oropharynx Neck exam: Present: normal inspection. Absent: tenderness Respiratory exam: Present: normal lung sounds bilaterally Cardiovascular Exam: Present: regular rate, normal rhythm GI/Abdominal exam: Present: soft. Absent: tenderness Extremities exam: Present: full ROM, other (Skin tear left hand without bony tenderness). Absent: tenderness Neurological exam: Present: alert, CN II-XII intact. Absent: motor sensory deficit Expanded Patient oriented to: Present: person, place. Absent: time Motor strength exam: RUE: 5, LUE: 5, RLE: 5, LLE: 5 Eye Response: (4) open spontaneously Motor Response: (6) obeys commands Verbal Response: (4) confused conversation Psychiatric exam: Present: normal affect, normal mood Skin exam: Present: abrasion (Left hand), other (Left eyebrow laceration) Course Vital Signs 11/18/17 11:22 Temperature 98.3 F Pulse Rate 78 Respiratory 18 Rate Blood Pressure 149/67 O2 Sat by Pulse 95 Oximetry Procedures - Laceration Laceration #1 Consent Obtained: verbal consent Time Out Performed: Yes Indication: laceration Site: face (Left eyebrow) Size (cm): 2 Description: linear Depth: simple, single layer Pre-repair: wound explored, irrigated extensively Type of Sutures: other (Closed with Dermabond) Patient Tolerated Procedure: well, no complications Medical Decision Making - Medical Decision Making Patient reevaluated. Patient and family updated. Urine will be sent for culture. - Lab Data Lab Results 11/18/17 Range/Units 12:00 Urine Color Yellow Urine Appearance Turbid H (Clear) Urine pH 7.5 (5.0-8.0) Ur Specific [place] 1.012 (1.001-1.035) Urine Protein 1+ H (Negative) Urine Glucose (UA) Negative (Negative) Urine Ketones Negative (Negative) Urine Blood Negative (Negative) Urine Nitrite Negative (Negative) Urine Bilirubin Negative (Negative) Urine Urobilinogen 2.0 (<2.0) mg/dL Ur Leukocyte Esterase Large H (Negative) Urine WBC 93 H (0-5) /hpf Urine WBC Clumps Occasional H (None) /hpf Triple Phos Crystals Rare H (None) /hpf Amorphous Sediment Rare H (None) /hpf Urine Bacteria Many H (None) /hpf Urine Mucus Rare H (None) /hpf - Radiology Data Radiology results: report reviewed (Computed tomography scan the brain cervical spine shows no acute abnormality. There is chronic changes and atrophy. There is some concern for pleural thickening.), image reviewed (Chest x-ray and pelvic x-ray show no acute fracture) Disposition Clinical Impression: Fall, Forehead laceration, Urinary tract infection Disposition: HOME SELF-CARE Condition: Stable Instructions: Fall Prevention for Older Adults (ED), Head Injury (ED), Skin Adhesive Care (ED), Urinary Tract Infection in Women (ED) Additional Instructions: Please follow-up with primary care physician in the next couple days for recheck. Have primary care physician review chart from today including computed tomography scan, especially regarding the lungs. Return for change in mental status, vomiting, weakness, worsening symptoms or other concerns or fevers. Prescriptions: Amoxicillin 500 mg PO Q8H #30 capsule Is patient prescribed a controlled substance at d/c from ED?: No Referrals: Steve Castro MD [Primary Care Provider] - 1-2 days Time of Disposition: 13:47
--- NOTE | 2017-11-18 12:16 | CT ---
EXAMINATION TYPE: CT brain parisa cool con DATE OF EXAM: 11/18/2017 COMPARISON: 10/16/2017 HISTORY: Fall CT DLP: 1302.1 mGycm. Automated Exposure Control for Dose Reduction was Utilized. TECHNIQUE: CT scan of the head and cervical spine are performed without contrast. FINDINGS: There is no acute intracranial hemorrhage, mass effect, or midline shift identified. The re is similar appearing old lacunar injury of the left caudate nucleus and anterior limb of the inter nal capsule as well as the bilateral posterior limbs of the internal capsules. Lacunar injury is also seen of the right parietal mitchell radiata. Confluent patchy areas of hypoattenuation are seen within the subcortical and periventricular white matter. These are most likely on the basis of chronic micr oangiopathy on similar to the prior. The ventricles and sulci are symmetrically prominent compatible with age-related volume loss. The globes are intact and the visualized sinuses are clear. Cerumen is incidentally noted within the external auditory canals. There is a left supraorbital scalp hematoma in the frontal region measuring 9 mm in greatest thicknes s. Cervical spine is visualized in its entirety from C1 through upper thoracic levels. Unchanged from th e prior 10/16/2017 there is a millimeters anterolisthesis (grade 1) of C4 and C5. There is also minima l 1 mm anterolisthesis of T2 on T3. 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 Multilevel unco vertebral hypertrophy and facet arthropathy are also seen. Prevertebral soft tissue appears within no rmal limits. The C1-C2 articulation is unremarkable. Posterior right apical pleural thickening partially visualized measuring 6.5 mm on series 16 image 44 . IMPRESSION: 1. There is no acute fracture or dislocation evident in the cervical spine. 2. No acute intracranial hemorrhage, mass effect, or midline shift is seen. Redemonstration of cerebr al atrophy, multiple old lacunar injuries, and moderate burden nonspecific white matter change. 3. Unchanged grade 1 anterolisthesis of C4 and C5 and T2 and T3 in comparison to the recent exam of . 4. Moderate multilevel degenerative disc disease as described above, similar to the prior. 5. Partial visualization of right apical lateral focal pleural thickening. Full evaluation of the mat st be performed with nonemergent CT thorax.
[2017-11-18 12:18] LABS: Amorphous Sediment,Urine Rare /hpf; Appearance,Urine Turbid (Clear); Bacteria,Urine Many /hpf; Bilirubin,Urine Negative (Negative); Blood,Urine Negative (Negative); Color,Urine Yellow; Glucose,Urine (UA) Negative (Negative); Ketones,Urine Negative (Negative); Leukocyte Esterase,Urine Large (Negative); Mucus,Urine Rare /hpf; Nitrite,Urine Negative (Negative); PH, Urine 7.5 (5.0-8.0); Protein,Urine 1+ (Negative); Specific Gravity,Urine 1.012 (1.001-1.035); Triple Phosphate Crystal,Urine Rare /hpf; WBC,Urine 93 /hpf (0-5)
[2017-11-18] MEDS ORDERED: DIPH,PERTUS(ACELL)TETVAC-LF 0.5 ML VIAL IM ONE (12:30)
--- NOTE | 2017-11-18 13:22 | XR ---
EXAMINATION TYPE: XR pelvis AP view DATE OF EXAM: 11/18/2017 CLINICAL HISTORY: Fall and pelvic pain TECHNIQUE: A single AP view of the pelvis is obtained. COMPARISON: None. FINDINGS: There is no acute fracture/dislocation evident in the pelvis. The hip and sacroiliac join ts appear symmetric and demonstrate moderate arthropathy. Extensive degenerative changes are seen at the lumbosacral junction. The overlying soft tissue appears unremarkable. Surgical clips are noted w ithin the low pelvis. IMPRESSION: There is no acute fracture or dislocation in the pelvis.
--- NOTE | 2017-11-18 13:23 | XR ---
EXAMINATION TYPE: XR chest 1V DATE OF EXAM: 11/18/2017 COMPARISON: 06/16/2016 HISTORY: Fall and chest pain TECHNIQUE: Single frontal view of the chest is obtained. FINDINGS: There is no focal air space opacity, pleural effusion, or pneumothorax seen. Right basilar granuloma is present. The cardiac silhouette size is within normal limits. There is diffuse osseous demineralization. No displaced acute fractures are evident IMPRESSION: No acute process.
[2017-11-18] MEDS ORDERED: AMOXICILLIN 500 MG CAP PO STA (13:46)
== END 2017-11-18 14:52 | disposition home or self-care (01) ==
LOC: EC 11:07
DX: S01.112A Laceration without foreign body of left eyelid and periocular area, initial encounter (principal); N39.0 Urinary tract infection, site not specified; S61.412A Laceration without foreign body of left hand, initial encounter; R41.0 Disorientation, unspecified; G31.9 Degenerative disease of nervous system, unspecified; I10 Essential (primary) hypertension; F03.90 Unspecified dementia, unspecified severity, without behavioral disturbance, psychotic disturbance, mood disturbance, and anxiety; K21.9 Gastro-esophageal reflux disease without esophagitis; K51.90 Ulcerative colitis, unspecified, without complications; M19.90 Unspecified osteoarthritis, unspecified site; Z79.82 Long term (current) use of aspirin; Z79.899 Other long term (current) drug therapy; Z88.1 Allergy status to other antibiotic agents; Z88.2 Allergy status to sulfonamides; Z98.890 Other specified postprocedural states; Z23 Encounter for immunization; W05.0XXA Fall from non-moving wheelchair, initial encounter; Y92.009 Unspecified place in unspecified non-institutional (private) residence as the place of occurrence of the external cause
CPT/HCPCS: 12011; 70450; 71045; 72125; 72170; 81001; 87077; 87086; 87186; 90471; 90715; 99284